=== PATIENT | female | born 1990 | race Caucasian/White ===

== ENCOUNTER 2017-01-23 15:57 | Emergency (ER) | payer BC ==
[2017-01-23 16:10] VITALS: BP 131/99
[2017-01-23] MEDS ORDERED: HYDROmorphone 0.5 MG/0.5 ML Syringe IVPUSH ONE ×2 (17:14→20:06)
[2017-01-23] MEDS ORDERED: Sodium Chloride 0.9% 1,000 ML IV ONE (17:15)
--- NOTE | 2017-01-23 17:15 | EDM.PDOC ---
ED HPI GI/ABDOMINAL - General Chief Complaint: Abdominal Pain Stated Complaint: R SIDE ABDOMINAL PN Time Seen by Provider: 01/23/17 16:32 Source of Information: Reports: Patient - History of Present Illness INITIAL COMMENTS - FREE TEXT/NARRATIVE: Patient here today for RLQ/right flank pain that started this morning. She has had decreased appetite but is tolerating fluids well. She did have some nausea with one episode of vomiting very early this morning. She has a history of ovarian cysts, has had hysterectomy and left ovary removed. US from outside facility today demonstrated normal right ovary and no free fluid in the pelvis. - Related Data Allergies/ADRs: Allergies Allergy/AdvReac Type Severity Reaction Status Date / Time gentamicin [Gentamicin] Allergy Redness Verified 01/23/17 16:11 morphine Allergy Hives Verified 01/23/17 16:11 buspirone HCl [From BuSpar] AdvReac Confusion Verified 01/23/17 16:11 prednisone AdvReac Tachycardia Verified 01/23/17 16:11 sertraline AdvReac Tachycardia Verified 01/23/17 16:11 Home Meds: Home Meds SUMAtriptan [Imitrex Pen Injector Kit] 6 mg SQ ASDIRECTED PRN 02/01/14 [History] ALPRAZolam [Xanax] 0.5 mg PO TID PRN 01/02/16 [History] Ketorolac [Toradol] 60 mg IM Q6H PRN 02/17/16 [History] Amitriptyline [Elavil] 75 mg PO BEDTIME 03/14/16 [History] Atenolol 1 tab PO BID 08/08/16 [History] DULoxetine [Cymbalta] 60 mg PO DAILY 08/08/16 [History] Ondansetron [Zofran] 8 mg PO Q6H PRN 08/08/16 [History] Cyclobenzaprine [Flexeril] 10 mg PO TID PRN #20 tablet 10/29/16 [Rx] Magnesium Amino Acid Chelate [Magnesium] 1 tab PO DAILY 10/29/16 [History] Past Medical History - Past Health History Medical/Surgical History: Denies Medical/Surgical History HEENT History: Reports: Other (see below) Other HEENT History: oral surgery- 2 teeth extracted on left upper and lower Cardiovascular History: Reports: Hypertension, Other (see below) Other Cardiovascular History: takes atenolol for history of tachycardia and migraines Respiratory History: Reports: None Gastrointestinal History: Reports: None, GERD, Other (see below) Other Gastrointestinal History: ulcer Genitourinary History: Reports: None, Renal calculus [facility] History: Reports: Fibroids, Other OB/BYN History: Pt reports "not now." exploratory laproscopy on 05-15-2016 Musculoskeletal History: Reports: Arthritis, Fracture Other Musculoskeletal History: Right radial fracture Neurological History: Reports: Migraines, Seizure Other Neuro History: has been on botox injection about 1 year now Psychiatric History: Reports: Anxiety, Depression, Other (see below) Other Psychiatric History: drug seeking behaviors Endocrine/Metabolic History: Reports: None Hematologic History: Reports: None Other Hematologic History: superficial blood clot 2013 Immunologic History: Reports: None Oncologic (Cancer) History: Reports: None Dermatologic History: Reports: None - Infectious Disease History Infectious Disease History: Reports: Chicken pox - Past Surgical History HEENT Surgical History: Reports: Oral surgery Other HEENT Surgeries/Procedures: [place] teeth GI Surgical History: Reports: Other (see below) Other GI Surgeries/Procedures: Exploratoy laproscopic Female Surgical History: Reports: D&C Other Female Surgeries/Procedures: ovarian cyst Other Neurological Surgeries/Procedures: Had occipital block on Dec 13 Musculoskeletal Surgical History: Reports: Arthroscopic knee, ORIF Other Musculoskeletal Surgeries/Procedures:: knee left scoped at 11 years of age Social & Family History - Family History Family Medical History: Noncontributory - Tobacco Use Smoking Status *Q: Current Some Day Smoker Years of Tobacco use: 10 Packs/Tins Daily: 0.2 Used Tobacco, but Quit: No Month Tobacco Last Used: 4 months ago Second Hand Smoke Exposure: No - Caffeine Use Caffeine Use: Reports: Soda - Alcohol Use Days Per Week of Alcohol Use: 2 Number of Drinks Per Day: 1 Total Drinks Per Week: 2 - Recreational Drug Use Recreational Drug Use: No - Living Situation & Occupation Living situation: Reports: , with family Occupation: unemployed ED ROS GENERAL - Review of Systems Review Of Systems: See Below Constitutional: Denies: fever, chills, weakness, fatigue Respiratory: Reports: No Symptoms Cardiovascular: Reports: No symptoms GI/Abdominal: Reports: Abdominal pain, Diarrhea, Decreased appetite, Nausea. Denies: Anorexia, Black stool, Bloody stool : Reports: flank pain. Denies: discharge, dysuria Skin: Reports: no symptoms ED EXAM, GI/ABD - Physical Exam Exam: See Below Exam Limited By: No limitations General Appearance: alert, WD/WN, no apparent distress Ears: normal external exam, hearing grossly normal, normal TMs Throat/Mouth: Normal inspection, Normal oropharynx Head: atraumatic, normocephalic Respiratory/Chest: no respiratory distress, lungs clear, normal breath sounds Cardiovascular: normal peripheral pulses, regular rate, rhythm, no murmur GI/Abdominal: normal bowel sounds, soft, McBurney's sign, Rovsing's sign. No: Childress's sign Psychiatric: normal affect, normal mood Skin Exam: Warm, Dry, Intact Course - Vital Signs Last Recorded V/S: Last Vital Signs Temp 97.9 F 01/23/17 16:05 Pulse 87 01/23/17 16:05 Resp 19 01/23/17 16:05 BP 131/99 H 01/23/17 16:05 Pulse Ox 99 01/23/17 16:05 - Orders/Labs/Meds Orders: Active Orders 24 hr Category Date Time Status Abdomen Pelvis wo Cont [CT] Stat Exams 01/23/17 18:55 Taken Labs: Laboratory Tests 01/23/17 01/23/17 01/23/17 Range/Units 17:30 18:18 18:18 WBC 11.16 H (3.98-10.04) K/mm3 RBC 4.77 (3.98-5.22) M/mm3 Hgb 13.8 (11.2-15.7) gm/L Hct 40.6 (34.1-44.9) % MCV 85.1 (79.4-94.8) fl MCH 28.9 (25.6-32.2) pg MCHC 34.0 (32.2-35.5) g/dl RDW Std Deviation 41.7 (36.4-46.3) fL Plt Count 362 (182-369) K/mm3 MPV 9.4 (9.4-12.3) fl Neutrophils % (Manual) 65 H (40-60) % Band Neutrophils % 2 (0-10) % Lymphocytes % (Manual) 33 (20-40) % Atypical Lymphs % 0 % Monocytes % (Manual) 0 L (2-10) % Eosinophils % (Manual) 0 L (0.7-5.8) % Basophils % (Manual) 0 L (0.1-1.2) Platelet Estimate Adequate RBC Morph Comment Normal Sodium 140 (136-145) mEq/L Potassium 3.9 (3.5-5.1) mEq/L Chloride 106 (98-107) mEq/L Carbon Dioxide 22 (21-32) mEq/L Anion Gap 15.9 H (5-15) BUN 13 (7-18) mg/dL Creatinine 0.9 (0.55-1.02) mg/dL Est Cr Clr Drug Dosing 89.69 mL/min Estimated GFR (MDRD) > 60 (>60) mL/min BUN/Creatinine Ratio 14.4 (14-18) Glucose 105 (74-106) mg/dL Calcium 9.5 (8.5-10.1) mg/dL Total Bilirubin 0.6 (0.2-1.0) mg/dL AST 12 L (15-37) U/L ALT 17 (14-59) U/L Alkaline Phosphatase 103 (46-116) U/L C-Reactive Protein < 0.2 (<1.0) mg/dL Total Protein 8.6 H (6.4-8.2) g/dl Albumin 4.3 (3.4-5.0) g/dl Globulin 4.3 gm/dL Albumin/Globulin Ratio 1.0 (1-2) Lipase 160 (73-393) U/L Urine Color Yellow (Yellow) Urine Appearance Cloudy H (Clear) Urine pH 6.0 (5.0-8.0) Ur Specific [place] 1.020 (1.005-1.030) Urine Protein Trace H (Negative) Urine Glucose (UA) Negative (Negative) Urine Ketones Negative (Negative) Urine Occult Blood 2+ H (Negative) Urine Nitrite Negative (Negative) Urine Bilirubin Negative (Negative) Urine Urobilinogen 0.2 (0.2-1.0) Ur Leukocyte Esterase Negative (Negative) Urine RBC 0-5 (0-5) /hpf Urine WBC 5-10 H (0-5) /hpf Ur Squamous Epith Cells 50-75 H (0-5) /hpf Urine Bacteria Rare (FEW) /hpf Urine Mucus Not seen (FEW) /hpf Meds: Medications Discontinued Medications Generic Name Dose Route Start Last Admin Trade Name Freq PRN Reason Stop Dose Admin Hydromorphone HCl 0.5 mg 01/23/17 17:14 01/23/17 18:05 Dilaudid IVPUSH 01/23/17 17:15 0.5 mg ONETIME ONE Administration Hydromorphone HCl 0.5 mg 01/23/17 20:06 01/23/17 20:14 Dilaudid IVPUSH 01/23/17 20:07 0.5 mg ONETIME ONE Administration Sodium Chloride 1,000 mls @ 999 mls/hr 01/23/17 17:15 01/23/17 18:04 Normal Saline IV 01/23/17 18:15 999 mls/hr ONETIME ONE Administration - Re-Assessments/Exams Free Text/Narrative Re-Assessment/Exam: RLQ pain/to McBurny's point and 2+ hematuria on UA. WBC 11,160. Patient was given 0.5mg dilaudid with improvement in pain. CT abdomen/pelvis w/o contrast was unremarkable. No ureteral stone or dilatation, appendix is visualized and wnl. NOT acute abdomen. Recommend rest, fluids and BRAT diet. She is to follow-up with PCP if symptoms not resolved by Thursday. 01/23/17 19:47 01/23/17 20:36 Departure - Departure Time of Disposition: 20:35 Disposition: Home, Self-Care 01 Condition: good Clinical Impression: Gastroenteritis Instructions: Viral Gastroenteritis, Adult, [id number] Referrals: Lorelei Burris NP [Primary Care Provider] - Forms: ED Department Discharge Additional Instructions: Rest, push oral fluids and very bland diet. Follow-up with your primary provider Thursday if not improving or you may certainly return to ER if any worsening. - My Orders Last 24 Hours: My Active Orders 01/23/17 18:55 Abdomen Pelvis wo Cont [CT] Stat - Assessment/Plan Last 24 Hours: My Active Orders 01/23/17 18:55 Abdomen Pelvis wo Cont [CT] Stat
--- NOTE | 2017-01-24 08:09 | CT ---
CT abdomen and pelvis Technique: Multiple axial sections were obtained from above the kidneys inferiorly to the pubic symphysis. Intravenous and oral contrast was not utilized. Study has been performed as a ureteral stone protocol. Comparison: Previous CT exam of 01/25/16 performed as a ureteral stone protocol. Findings: Kidneys show no abnormal calcifications. No ureteral dilatation is seen. No ureteral stone is seen. No renal calculi are identified. Noncontrast appearance of the lower liver and spleen appear within normal limits. Visualized portions of the pancreas are within normal limits. Adrenal glands show no nodule. Aorta shows no aneurysmal dilatation. No retroperitoneal adenopathy or mesenteric abnormalities are seen. No pelvic mass or adenopathy is seen. Appendix is seen which appears within normal limits. No free fluid or inflammatory change is seen. Bone window settings were reviewed which appear within normal limits for the patient's age. Impression: 1. No renal calculi, ureteral dilatation or ureteral stone is appreciated. 2. CT study of the abdomen and pelvis shows no abnormality as performed as a ureteral stone protocol. Diagnostic code #1
== END 2017-01-23 20:47 | disposition home or self-care (01) ==
LOC: JD.ED 15:57
DX: K52.9 Noninfective gastroenteritis and colitis, unspecified (principal); K21.9 Gastro-esophageal reflux disease without esophagitis; Z79.899 Other long term (current) drug therapy; Z88.6 Allergy status to analgesic agent; Z88.8 Allergy status to other drugs, medicaments and biological substances; F17.200 Nicotine dependence, unspecified, uncomplicated
CPT/HCPCS: 36415; 74176; 80053; 81001; 83690; 85025; 86140; 96361; 96374; 96376; 99284; J1170; J7040; 99285-25

== ENCOUNTER 2017-02-16 18:15 | Emergency (ER) | payer BC ==
[2017-02-16 18:32] VITALS: BP 144/97
[2017-02-16] MEDS ORDERED: diphenhydrAMINE 50 MG/ML SDV IVPUSH ONE (19:24)
[2017-02-16] MEDS ORDERED: Sodium Chloride 0.9% 10 ML Syringe FLUSH PRN (19:24)
[2017-02-16] MEDS ORDERED: Metoclopramide 10 MG/2 ML SDV IVPUSH ONE (19:24)
[2017-02-16] MEDS ORDERED: Sodium Chloride 0.9% 1,000 ML IV ONE (19:26)
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
[2017-02-16] MEDS ORDERED: Dicyclomine 10 MG Cap PO ONE (19:44)
[2017-02-16] MEDS ORDERED: Metoclopramide 10 MG/2 ML SDV IM ONE (20:10)
[2017-02-16] MEDS ORDERED: diphenhydrAMINE 50 MG/ML SDV IM ONE (20:10)
[2017-02-16] MEDS ORDERED: Potassium Bicarbonate/Cit Ac 10 MEQ Effervescent Tab PO ONE (20:19)
[2017-02-16] MEDS ORDERED: Dicyclomine 10 MG Cap PO SCH (22:00)
--- NOTE | 2017-02-17 09:13 | CR ---
Abdomen: Supine and upright views of the abdomen were obtained. Comparison: No previous abdominal x-ray, previous CT abdomen and pelvis exam of 01/23/17 performed as a ureteral stone protocol. No free air is identified. No abnormal calcifications are identified. Scattered gas within small bowel and colon is seen which appears within normal limits at this time. Bony structures appear within normal limits for the patient's age. Impression: 1. Nonspecific two-view abdominal x-ray. Diagnostic code #1
== END 2017-02-16 21:20 | disposition home or self-care (01) ==
LOC: JD.ED 18:15
DX: K59.00 Constipation, unspecified (principal); E87.6 Hypokalemia; F41.8 Other specified anxiety disorders; Z98.890 Other specified postprocedural states; Z79.899 Other long term (current) drug therapy; Z88.1 Allergy status to other antibiotic agents; Z88.8 Allergy status to other drugs, medicaments and biological substances; Z88.5 Allergy status to narcotic agent
CPT/HCPCS: 36415; 74020; 80053; 81001; 83690; 85025; 86140; 96372; 99284; A9270; J1200; J2765

== ENCOUNTER 2017-09-29 08:49 | Emergency (ER) | payer BC ==
--- NOTE | 2017-09-29 08:55 | EDM.PDOC ---
ED HPI GENERAL MEDICAL PROBLEM - General Chief Complaint: Gastrointestinal Problem Stated Complaint: DEHYDRATION Time Seen by Provider: 09/29/17 08:54 Source of Information: Reports: Patient History Limitations: Reports: No Limitations - History of Present Illness INITIAL COMMENTS - FREE TEXT/NARRATIVE: 27-year-old female attends the ED in a couple of her . She was sent over from [facility] where she was seen initially. She reports that she developed stomach flu on August. This started out with both nausea vomiting and diarrhea. The diarrhea was large-volume yellow water loss for about a day and a half and seemed to improve after taking Imodium twice. However she has continued to have intermittent nausea and vomiting. She takes water but most of it is coming back up. She feels extremely lightheaded and dizzy when she tries to stand. She has not fallen or collapsed. When seen at the clinic heart rate was 132/m with a systolic blood pressure of 82. She has a severe headache she believes from vomiting so much. She denies any hematemesis or blood in the stool. Has diffuse upper abdominal pain. No cough or sputum production not aware of any fever or chills. No genitourinary complaints. Onset: Sudden Onset Date: 09/20/17 Duration: Day(s):, Waxing/Waning Location: Reports: Abdomen (Nausea vomiting intractable with initial diarrhea that is now improved.), Other (Generalized pounding throbbing headache.) Quality: Reports: Ache Severity: Severe Improves with: Reports: None Worsens with: Reports: Eating Context: Reports: Sick Contact (Stomach flu seem to go through the house after Thanksgiving when relatives visited.). Denies: Activity, Exercise, Lifting, Trauma Associated Symptoms: Reports: Fever/Chills (Chills but no fever), Headaches, Loss of Appetite, Malaise. Denies: Confusion, Chest Pain, Cough, cough w sputum , Diaphoresis, Seizure (Constant throbbing pounding headache), Shortness of Breath, Syncope Treatments LIFE UNDERWRITER: Reports: Other (see below) (Zofran sublingual when necessary) Headache Pain Score (Numeric/FACES): 9 Generalized Pain Score (Numeric/FACES): 8 - Related Data Allergies Allergy/AdvReac Type Severity Reaction Status Date / Time gentamicin [Gentamicin] Allergy Redness Verified 09/29/17 09:03 morphine Allergy Hives Verified 09/29/17 09:03 buspirone HCl [From BuSpar] AdvReac Confusion Verified 09/29/17 09:03 prednisone AdvReac Tachycardia Verified 09/29/17 09:03 sertraline AdvReac Tachycardia Verified 09/29/17 09:03 Home Meds: Home Meds SUMAtriptan [Imitrex Pen Injector Kit] 6 mg SQ ASDIRECTED PRN 02/01/14 [History] ALPRAZolam [Xanax] 0.5 mg PO TID PRN 01/02/16 [History] Ketorolac [Toradol] 60 mg IM Q6H PRN 02/17/16 [History] Amitriptyline [Elavil] 75 mg PO BEDTIME 03/14/16 [History] Atenolol 1 tab PO BID 08/08/16 [History] DULoxetine [Cymbalta] 60 mg PO DAILY 08/08/16 [History] Ondansetron [Zofran] 8 mg PO Q6H PRN 08/08/16 [History] Cyclobenzaprine [Flexeril] 10 mg PO TID PRN #20 tablet 10/29/16 [Rx] Magnesium Amino Acid Chelate [Magnesium] 1 tab PO DAILY 10/29/16 [History] Metoclopramide HCl [Reglan] 10 mg PO Q6H #6 tablet 09/29/17 [Rx] Past Medical History - Past Health History Medical/Surgical History: Denies Medical/Surgical History HEENT History: Reports: Other (See Below) Other HEENT History: oral surgery- 2 teeth extracted on left upper and lower Cardiovascular History: Reports: Hypertension, Other (See Below) Other Cardiovascular History: takes atenolol for history of tachycardia and migraines Respiratory History: Reports: None Gastrointestinal History: Reports: None, GERD, Other (See Below) Other Gastrointestinal History: ulcer Genitourinary History: Reports: None, Renal Calculus BREAD JOCKEY History: Reports: Fibroids, Other OB/BYN History: Pt reports "not now." exploratory laproscopy on 05-15-2016 Musculoskeletal History: Reports: Arthritis, Fracture Other Musculoskeletal History: Right radial fracture Neurological History: Reports: Migraines, Seizure Other Neuro History: has been on botox injection about 1 year now Psychiatric History: Reports: Anxiety, Depression, Other (See Below) Other Psychiatric History: drug seeking behaviors Endocrine/Metabolic History: Reports: None Hematologic History: Reports: None Other Hematologic History: superficial blood clot 2013 Immunologic History: Reports: None Oncologic (Cancer) History: Reports: None Dermatologic History: Reports: None - Infectious Disease History Infectious Disease History: Reports: Chicken Pox - Past Surgical History HEENT Surgical History: Reports: Oral Surgery GI Surgical History: Reports: Other (See Below) Musculoskeletal Surgical History: Reports: Arthroscopic Knee, ORIF Social & Family History - Family History Family Medical History: Noncontributory - Tobacco Use Smoking Status *Q: Never Smoker Years of Tobacco use: 10 Packs/Tins Daily: 0.2 Used Tobacco, but Quit: No Month Tobacco Last Used: 4 months ago Second Hand Smoke Exposure: No - Caffeine Use Caffeine Use: Reports: Soda - Alcohol Use Days Per Week of Alcohol Use: 2 Number of Drinks Per Day: 1 Total Drinks Per Week: 2 - Recreational Drug Use Recreational Drug Use: No - Living Situation & Occupation Living situation: Reports: , with Family Occupation: Unemployed ED ROS GENERAL - Review of Systems Review Of Systems: See Below Constitutional: Reports: Chills, Malaise, Weakness, Fatigue, Decreased Appetite , Weight Loss, Other (Dizzy and lightheaded). Denies: Fever HEENT: Denies: Glasses, Hearing Loss, Rhinitis, Sinus Problem, Vertigo Respiratory: Reports: No Symptoms Cardiovascular: Reports: No Symptoms Endocrine: Reports: Fatigue GI/Abdominal: Reports: Abdominal Pain (From vomiting so much in the upper abdomen.), Diarrhea, Decreased Appetite, Nausea (A with initial onset of illness her to couple of days but now better.), Vomiting (Intractable nausea and vomiting times a week.) : Reports: Other (Mild dysuria as the urine is very concentrated) Musculoskeletal: Reports: Neck Pain (Chronically) Skin: Reports: No Symptoms Neurological: Reports: Dizziness, Headache, Difficulty Walking, Weakness. Denies: Numbness (Constant throbbing generalized headache.), Paresthesia, Pre- Existing Deficit, Seizure, Syncope, Tingling, Tremors, Trouble Speaking (Due to weakness), Change in Speech, Gait Disturbance Psychiatric: Reports: No Symptoms Hematologic/Lymphatic: Reports: No Symptoms Immunologic: Reports: No Symptoms ED EXAM, GI/ABD - Physical Exam Exam: See Below Exam Limited By: No Limitations General Appearance: Alert, WD/WN, No Apparent Distress, Other (Vital signs reveal a blood pressure of 86/49 and normally she is 120 to 1:30 systolically. Respiratory is only 16 however and should be higher if she is ketotic. Resting heart rate is 132/m.) Eyes: Bilateral: Pale Conjunctiva (No jaundice.) Throat/Mouth: Other Head: Atraumatic, Normocephalic (Tongue is slightly dry and coated.) Neck: Normal Inspection, Supple, Non-Tender, Full Range of Motion. No: Lymphadenopathy (L), Lymphadenopathy (R) Respiratory/Chest: No Respiratory Distress, Lungs Clear, Normal Breath Sounds, No Accessory Muscle Use, Chest Non-Tender Cardiovascular: Normal Peripheral Pulses, No Edema, No Gallop, No Murmur, No Rub , Tachycardia (Resting tachycardia of 1 32/m.) GI/Abdominal Exam: Soft, No Distention, No Abnormal Bruit, Tender (In the epigastrium what appears to be musculoskeletal in origin.). No: No Organomegaly , No Mass, Guarding, Rigid, Rebound Extremities: Normal Inspection, Normal Range of Motion, Non-Tender, No Pedal Edema Neurological: Alert, Oriented, CN II-XII Intact, Normal Cognition Psychiatric: Normal Affect, Normal Mood Skin Exam: Warm, Dry, Intact, Normal Color, No Rash Course - Vital Signs Last Recorded V/S: Last Vital Signs Temp 36.9 C 09/29/17 08:55 Pulse 132 H 09/29/17 08:55 Resp 16 09/29/17 08:55 BP 86/49 L 09/29/17 08:55 Pulse Ox 95 09/29/17 08:55 Orthostatic Blood Pressure [ 85/49 Standing] Orthostatic Blood Pressure [ 90/47 Sitting] Orthostatic Blood Pressure [ 86/49 Supine] - Orders/Labs/Meds Orders: Active Orders 24 hr Category Date Time Status Orthostatic Vital Signs [RC] ASDIRECTED Care 09/29/17 08:54 Active COMPREHENSIVE METABOLIC PN,CMP [CHEM] Stat Lab 09/29/17 10:10 Results CRP [C-REACTIVE PROTEIN] [CHEM] Stat Lab 09/29/17 10:10 Results DRUG SCREEN, URINE [URCHEM] Stat Lab 09/29/17 09:30 Uncollected LIPASE [CHEM] Stat Lab 09/29/17 10:10 Results URINALYSIS W/MICROSCOPIC [UA W/MICROSCOPIC] [URIN] Stat Lab 09/29/17 09:24 Uncollected Dextrose 5%-0.9% NaCl [Dextrose 5%-Normal Saline] 1,000 Med 09/29/17 09:00 Active ml IV ASDIRECTED Medication Orders Dextrose/Sodium Chloride (Dextrose 5%-Normal Saline) 1,000 mls @ 999 mls/hr IV ASDIRECTED THANIA Last Admin: 09/29/17 10:23 Dose: 999 mls/hr Labs: Laboratory Tests 09/29/17 09/29/17 09/29/17 Range/Units 10:10 10:10 10:10 WBC 17.21 H (3.98-10.04) K/mm3 RBC 4.58 (3.98-5.22) M/mm3 Hgb 13.4 (11.2-15.7) gm/L Hct 39.6 (34.1-44.9) % MCV 86.5 (79.4-94.8) fl MCH 29.3 (25.6-32.2) pg MCHC 33.8 (32.2-35.5) g/dl RDW Std Deviation 41.3 (36.4-46.3) fL Plt Count 165 L (182-369) K/mm3 MPV 9.3 L (9.4-12.3) fl Neutrophils % (Manual) 81 H (40-60) % Band Neutrophils % 15 H (0-10) % Lymphocytes % (Manual) 4 L (20-40) % Atypical Lymphs % 0 % Monocytes % (Manual) 0 L (2-10) % Eosinophils % (Manual) 0 L (0.7-5.8) % Basophils % (Manual) 0 L (0.1-1.2) Platelet Estimate Adequate Plt Morphology Comment Normal RBC Morph Comment Normal Sodium 138 (136-145) mEq/L Potassium 4.9 (3.5-5.1) mEq/L Chloride 101 (98-107) mEq/L Carbon Dioxide 22 (21-32) mEq/L Anion Gap 19.9 H (5-15) BUN 35 H (7-18) mg/dL Creatinine 2.6 H (0.55-1.02) mg/dL Est Cr Clr Drug Dosing 32.21 mL/min Estimated GFR (MDRD) 22 (>60) mL/min BUN/Creatinine Ratio 13.5 L (14-18) Glucose 84 (74-106) mg/dL Calcium 8.5 (8.5-10.1) mg/dL Total Bilirubin 4.7 H (0.2-1.0) mg/dL AST 142 H (15-37) U/L ALT 88 H (14-59) U/L Alkaline Phosphatase 116 (46-116) U/L Total Protein 7.7 (6.4-8.2) g/dl Albumin 3.5 (3.4-5.0) g/dl Globulin 4.2 gm/dL Albumin/Globulin Ratio 0.8 L (1-2) Lipase 80 (73-393) U/L Ketones 0.34 (0.0-0.3) mM Meds: Medications Generic Name Dose Route Start Last Admin Trade Name Freq PRN Reason Stop Dose Admin Dextrose/Sodium Chloride 1,000 mls @ 999 mls/hr 09/29/17 09:00 09/29/17 10:23 Dextrose 5%-Normal Saline IV 999 mls/hr ASDIRECTED THANIA Administration Discontinued Medications Generic Name Dose Route Start Last Admin Trade Name Freq PRN Reason Stop Dose Admin Diphenhydramine HCl 25 mg 09/29/17 09:21 09/29/17 10:24 Benadryl IVPUSH 09/29/17 09:22 25 mg ONETIME ONE Administration Hydromorphone HCl 1 mg 09/29/17 09:21 09/29/17 10:26 Dilaudid IVPUSH 09/29/17 09:22 1 mg ONETIME ONE Administration Metoclopramide HCl 10 mg 09/29/17 09:21 09/29/17 10:24 Reglan IVPUSH 09/29/17 09:22 10 mg ONETIME ONE Administration - Radiology Interpretation Free Text/Narrative:: 27-year-old female presents the ED after being referred from [facility] with a noted resting tachycardia of 1 32/m and a low blood pressure of 86 systolic. She reports that she's had intractable nausea and vomiting for about 8 days. Small sips of water may be stay down. Prior to making any urine. Patient actually looks good. She reports that the initial onset of illness was that also loose watery diarrhea stools for 2 days. At present she has a constant throbbing headache which is made worse by the vomiting. She is prone to migraines. Patient has a history of narcotic dependency and abuse. Some of her symptoms at this time could be withdrawal. Plan we'll try and establish an IV and obtain routine labs. Note she is not tachypnea Which would suggest she is not truly acidotic. Given Reglan 10 mg IV with Benadryl 25 mg IV for headache relief. Also to prevent dystonic reaction as she took a Zofran within the hour prior to coming to the clinic. Dilaudid 1 mg IV for headache relief routine labs including a serum lipase and serum ketones. - Re-Assessments/Exams Free Text/Narrative Re-Assessment/Exam: 09/29/17 10:08 delay in treatment because of inability to get an IV established. GOVERNMENT OPERATIONS CONSULTANT was called to establish an IV at this time. 09/29/17: 1055: Labs reveal an elevated white count at 17.21 with a significant left shift of 81% neutrophils and 15% band cells. Hemoglobin is 13.4 hematocrit is 39.6. Platelet count 165,000. Sodium 138 potassium 4.9 chloride 101 bicarbonate is 22. Anion gap is elevated at 19.9 with a BUN of 35. Creatinine is 2.6. EGFR is only 22. BUN/creatinine ratio is 13.5. Glucose was 84. Calcium 8.5 total bilirubin is elevated at 4.7 AST is 142 ALT is 88 I suspect from volume depletion. C-reactive protein is not yet available. Lipase is 80. Ketones 0.34. I.e. elevated 09/29/17 10:59 Patient got a call from her daughter from the school and needs to be picked up as she now is having nausea and vomiting.. She therefore wishes to discontinue her IV and she has thus far only received 500 mils. Her and a gap is 19.9 with a white count of 17.2 potassium is okay at 4.9 but her creatinine is 2.6. She is volume depleted. She has decided to leave the department. I will therefore place her on Reglan 10 mg by mouth every 6 hours for the next day and then she can use Zofran sublingually. She is to take in at least 40 ounces of Gatorade or Powerade today and tomorrow to provide replenishment. Of note she is leaving the ED again by better judgment. Departure - Departure Time of Disposition: 11:00 Disposition: Home, Self-Care 01 Condition: Fair Clinical Impression: Metabolic acidosis, Renal insufficiency, Volume depletion, gastrointestinal loss Intractable nausea and vomiting Qualifiers: Vomiting type: unspecified Qualified Code(s): R11.2 - Nausea with vomiting, unspecified - Discharge Information Prescriptions: Metoclopramide HCl [Reglan] 10 mg PO Q6H #6 tablet Instructions: Nausea and Vomiting, Adult Referrals: Lorelei Burris NP [Primary Care Provider] - Forms: ED Department Discharge Additional Instructions: Evaluation the emergency room today in regards to intractable nausea and vomiting with volume depletion. Lab work does show an elevated white count at 17.72 which represents a stress response. You are suffering from what we call a metabolic acidosis with an anion gap of 19.9. Normal anion gap is 15. This is a measuring stick for dehydration and revealing that you're breaking down your fatty acids for energy because of inability to eat. Kidney function is showing signs of dehydration as well. You opted to leave the department before adequate treatment could be given as you would normally require about 2 L of IV fluid to provide significant rehydration. Therefore I would suggest Reglan tablet every 6 hours for 6 consecutive doses. Next dose would be taken at 3:00 today. This should keep you from further vomiting and allow you to take in clear fluids. I would especially suggest Gatorade or Powerade taking at least 40-60 ounces today and similarly tomorrow to rehydrate herself. Of course the vomiting continued issue will have to return to the ED. - My Orders Last 24 Hours: My Active Orders 09/29/17 08:54 Orthostatic Vital Signs [RC] ASDIRECTED 09/29/17 09:00 Dextrose 5%-0.9% NaCl [Dextrose 5%-Normal Saline] 1,000 ml IV ASDIRECTED 09/29/17 09:24 URINALYSIS W/MICROSCOPIC [UA W/MICROSCOPIC] [URIN] Stat 09/29/17 09:30 DRUG SCREEN, URINE [URCHEM] Stat 09/29/17 10:10 COMPREHENSIVE METABOLIC PN,CMP [CHEM] Stat CRP [C-REACTIVE PROTEIN] [CHEM] Stat LIPASE [CHEM] Stat - Assessment/Plan Last 24 Hours: My Active Orders 09/29/17 08:54 Orthostatic Vital Signs [RC] ASDIRECTED 09/29/17 09:00 Dextrose 5%-0.9% NaCl [Dextrose 5%-Normal Saline] 1,000 ml IV ASDIRECTED 09/29/17 09:24 URINALYSIS W/MICROSCOPIC [UA W/MICROSCOPIC] [URIN] Stat 09/29/17 09:30 DRUG SCREEN, URINE [URCHEM] Stat 09/29/17 10:10 COMPREHENSIVE METABOLIC PN,CMP [CHEM] Stat CRP [C-REACTIVE PROTEIN] [CHEM] Stat LIPASE [CHEM] Stat
[2017-09-29] MEDS ORDERED: Dextrose 5%-0.9% NaCl 1,000 ML IV SCH (09:00)
[2017-09-29 09:03] VITALS: BP 86/49
[2017-09-29] MEDS ORDERED: diphenhydrAMINE 50 MG/ML SDV IVPUSH ONE (09:21)
[2017-09-29] MEDS ORDERED: Metoclopramide 10 MG/2 ML SDV IVPUSH ONE (09:21)
[2017-09-29] MEDS ORDERED: HYDROmorphone 1 MG/ML Syringe IVPUSH ONE (09:21)
--- NOTE | 2017-09-29 10:28 | PCM.SN ---
- Free Text/Narrative Note: 09-29-17 Start- 1000 End- 1020 Called to ED for a patient with difficult IV access. Multiple attempts per nursing staff without success. Patients left proximal antecubital prepped with chloraprep and lfet to dry. Skin localized with 1% buffered lidocaine. A 20 gauge 1.88" angiocath was placed in the left brachial vein under ultrasound guidance x1 attempt. 10CC of blood drawn from IV catheter after 10cc of waste blood was taken from the vein. Flushed well. Secured with sterile tegaderm and tape. Patient tolerated well. Suhas Huber CRNA
== END 2017-09-29 11:17 | disposition home or self-care (01) ==
LOC: JD.ED 08:49
DX: E86.9 Volume depletion, unspecified (principal); E87.2 Acidosis; N28.9 Disorder of kidney and ureter, unspecified; K92.2 Gastrointestinal hemorrhage, unspecified; I10 Essential (primary) hypertension; Z88.1 Allergy status to other antibiotic agents; Z88.5 Allergy status to narcotic agent; Z88.8 Allergy status to other drugs, medicaments and biological substances; Z79.899 Other long term (current) drug therapy
CPT/HCPCS: 36415; 80053; 82009; 83690; 85025; 86140; 96361; 96374; 96375; 99284; J1170; J1200; J2765; J7042

== ENCOUNTER 2018-04-07 19:27 | Emergency (ER) | payer BC ==
[2018-04-07 19:56] VITALS: BP 145/90
[2018-04-07] MEDS ORDERED: Haloperidol Lactate 5 MG/ML SDV IM ONE (20:10)
[2018-04-07] MEDS ORDERED: Benztropine 1 MG Tab PO STA (20:10)
[2018-04-07] MEDS ORDERED: Ondansetron 4 MG/2 ML SDV IVPUSH ONE (20:10)
[2018-04-07] MEDS ORDERED: Sodium Chloride 0.9% 1,000 ML IV ONE (20:10)
--- NOTE | 2018-04-07 20:49 | EDM.PDOC ---
ED HPI GENERAL MEDICAL PROBLEM - General Chief Complaint: Headache Stated Complaint: MYGRAIN Time Seen by Provider: 04/07/18 19:55 Source of Information: Reports: Patient History Limitations: Reports: No Limitations - History of Present Illness INITIAL COMMENTS - FREE TEXT/NARRATIVE: The patient states that she has had a migraine for the past 4 days. She describes a bifrontal headache. It is constant. She has had nausea, and states that she vomited once. She has both photophobia and phonophobia, but no visual changes, and no neurologic symptoms, such as tingling, numbness, or weakness. She states that this current headache is essentially the same as prior migraines , although she has not had a migraine for over a year. She states that she took 2 doses of sumatriptan this past 04/04/2018, then 60 mg of IM Toradol on 04/05/2018. She states that she has also been taking aspirin and Excedrin, all without relief. She states that the last imaging study of her head was in 2015. The patient has a documented history of opioid dependence. Headache Pain Score (Numeric/FACES): 8 - Related Data Allergies Allergy/AdvReac Type Severity Reaction Status Date / Time gentamicin [Gentamicin] Allergy Redness Verified 04/07/18 19:56 morphine Allergy Hives Verified 04/07/18 19:56 buspirone HCl [From BuSpar] AdvReac Confusion Verified 04/07/18 19:56 prednisone AdvReac Tachycardia Verified 04/07/18 19:56 sertraline AdvReac Tachycardia Verified 04/07/18 19:56 Home Meds: Home Meds SUMAtriptan [Imitrex Pen Injector Kit] 6 mg SQ ASDIRECTED PRN 02/01/14 [History] ALPRAZolam [Xanax] 0.5 mg PO TID PRN 01/02/16 [History] Ketorolac [Toradol] 60 mg IM Q6H PRN 02/17/16 [History] Amitriptyline [Elavil] 75 mg PO BEDTIME 03/14/16 [History] Atenolol 1 tab PO BID 08/08/16 [History] DULoxetine [Cymbalta] 60 mg PO DAILY 08/08/16 [History] Ondansetron [Zofran] 8 mg PO Q6H PRN 08/08/16 [History] Cyclobenzaprine [Flexeril] 10 mg PO TID PRN #20 tablet 10/29/16 [Rx] Magnesium Amino Acid Chelate [Magnesium] 1 tab PO DAILY 10/29/16 [History] Metoclopramide HCl [Reglan] 10 mg PO Q6H #6 tablet 09/29/17 [Rx] Past Medical History 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: 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, Musculoskeletal History: Reports: Arthritis, Fracture (right radius) Neurological History: Reports: Migraines, Seizure Psychiatric History: Reports: Addiction (Opioids), Anxiety, Depression - Infectious Disease History Infectious Disease History: Reports: Chicken Pox - Past Surgical History HEENT Surgical History: Reports: Oral Surgery ([place] teeth extraction) Female Surgical History: Reports: D&C (x 1) Musculoskeletal Surgical History: Reports: Arthroscopic Knee (left), ORIF ( right hand) Social & Family History - Family History Family Medical History: Noncontributory - Tobacco Use Smoking Status *Q: Current Some Day Smoker Years of Tobacco use: 10 Packs/Tins Daily: 0.1 - Caffeine Use Caffeine Use: Reports: Coffee, Soda - Recreational Drug Use Recreational Drug Use: No - Living Situation & Occupation Living situation: Reports: , with Family Occupation: Unemployed ED ROS GENERAL - Review of Systems Review Of Systems: ROS reveals no pertinent complaints other than HPI. - Physical Exam Exam: See Below Exam Limited By: No Limitations General Appearance: Alert, WD/WN, No Apparent Distress Eye Exam: Bilateral Eye: Other (Mydriasis - both pupils dilated to 9 mm, with no light reflex) Ears: Normal External Exam, Hearing Grossly Normal Nose: Normal Inspection, No Blood Throat/Mouth: Normal Inspection, Normal Lips, Normal Voice, No Airway Compromise Head Exam: Atraumatic, Normocephalic Neck: Normal Inspection, Full Range of Motion Respiratory/Chest: No Respiratory Distress, Lungs Clear, Normal Breath Sounds, No Accessory Muscle Use Cardiovascular: Normal Peripheral Pulses, Regular Rate, Rhythm, No Edema, No Gallop, No JVD, No Murmur, No Rub GI/Abdominal: Normal Bowel Sounds, Soft, Non-Tender, No Organomegaly, No Distention, No Abnormal Bruit, No Mass (Female) Exam: Deferred Rectal (Female) Exam: Deferred Neuro Exam (Abbreviated): Alert, Oriented, CN II-XII Intact, Normal Cognition, No Motor/Sensory Deficits Back Exam: Normal Inspection, Full Range of Motion, NT Extremities: Normal Inspection, Normal Range of Motion, No Pedal Edema, Normal Capillary Refill Psychiatric: Normal Affect Skin Exam: Warm, Dry, Intact, Normal Color, No Rash Course - Vital Signs Last Recorded V/S: Last Vital Signs Temp 36.6 C 04/07/18 19:54 Pulse 64 04/07/18 19:54 Resp 18 04/07/18 19:54 BP 145/90 H 04/07/18 19:54 Pulse Ox 98 04/07/18 19:54 - Orders/Labs/Meds Meds: Medications Discontinued Medications Generic Name Dose Route Start Last Admin Trade Name Rik PRN Reason Stop Dose Admin Benztropine Mesylate 1 mg 04/07/18 20:10 04/07/18 20:45 Cogentin PO 04/07/18 20:11 1 mg ONETIME STA Administration Haloperidol Lactate 5 mg 04/07/18 20:10 04/07/18 20:36 Haldol IM 04/07/18 20:11 5 mg ONETIME ONE Administration Sodium Chloride 1,000 mls @ 999 mls/hr 04/07/18 20:10 04/07/18 20:30 Normal Saline IV 04/07/18 21:10 Not Given ONETIME ONE Ondansetron HCl 4 mg 04/07/18 20:10 04/07/18 20:30 Zofran IVPUSH 04/07/18 20:11 Not Given ONETIME ONE - Re-Assessments/Exams Free Text/Narrative Re-Assessment/Exam: 04/07/18 20:33 Notified by Seble REEVES that the patient is refusing to have an IV placed, therefore we cannot give her the IV fluid or IV Zofran that was ordered, however , she can still get the IM Haldol and oral Cogentin. 04/07/18 21:03 2 nurses reported to me that the patient is requesting Benadryl. On her physical examination, the patient was found to have severe mydriasis. While there are a number of medications or drugs that can cause this, one of them is Benadryl, as the anticholinergic effect blocks the muscarinic acetylcholine receptor, allowing for pupillary constriction and accommodation. While it may sound odd, abuse of Benadryl is fairly common, as excessive doses, like other anticholinergic medications, causes a release of dopamine, producing euphoria. I therefore refused the patient's request for Benadryl. 04/07/18 22:06 CT of the head without contrast is read by [facility] as "Normal head/ brain CT." 04/07/18 22:07 The patient reports that her headache is down to a "5". I will discharge her home. Departure - Departure Time of Disposition: 22:07 Disposition: Home, Self-Care 01 Condition: Good Clinical Impression: Migraine headache without aura Qualifiers: Status migrainosus presence: without status migrainosus Intractability: intractable Qualified Code(s): G43.019 - Migraine without aura, intractable, without status migrainosus - Discharge Information Instructions: Migraine Headache, [id number] Referrals: Lorelei Burris RN WOUND [Primary Care Provider] - Forms: ED Department Discharge Additional Instructions: You were seen in the emergency room for a migraine headache. Workup in the ER included a CT scan of her head, which returned as normal. Your headaches significantly improved following IM Haldol. This confirms that your headache was migrainous in etiology. Get plenty of rest tonight in a dark, quiet place. Stay well hydrated. Follow-up with your PCP, Lorelei Burris, at the next available appointment. If any other problems, please do not hesitate to return to the ER.
--- NOTE | 2018-04-08 07:51 | CT ---
Head CT Technique: Multiple axial sections through the brain were obtained. Intravenous contrast was not utilized. Comparison: Previous MRI brain dated 01/23/16. Findings: Ventricles along with basal cisterns and sulci over the convexities are within normal limits for the patient's age. No abnormal parenchymal densities are seen. No evidence of intracranial hemorrhage. No midline shift or mass effect is seen. Bone window settings were reviewed which show the visualized sinuses to appear clear. No acute calvarial abnormality is seen. Impression: 1. Nothing acute is seen on noncontrast head CT study. Diagnostic code #1 Agree with preliminary report issued by [facility] ([facility] preliminary report dictated on 04/07/18, 10:20 PM Central Time)
== END 2018-04-07 22:20 | disposition home or self-care (01) ==
LOC: JD.ED 19:27
DX: G43.019 Migraine without aura, intractable, without status migrainosus (principal); F17.210 Nicotine dependence, cigarettes, uncomplicated; M19.90 Unspecified osteoarthritis, unspecified site; Z79.899 Other long term (current) drug therapy; Z88.5 Allergy status to narcotic agent; Z88.8 Allergy status to other drugs, medicaments and biological substances
CPT/HCPCS: 70450; 96372; 99284; A9270; J1630

== ENCOUNTER 2019-10-01 13:45 | Emergency (ER) | payer BC ==
[2019-10-01 14:05] VITALS: BP 136/93; PULSE 102
--- NOTE | 2019-10-01 15:10 | EDM.PDOC ---
<Paulina Calderón - Last Filed: 10/01/19 15:11> ED HPI GENERAL MEDICAL PROBLEM - General Chief Complaint: Lower Extremity Injury/Pain Stated Complaint: FALL/BACK AND LEG INJURY Time Seen by Provider: 10/01/19 14:11 Source of Information: Reports: Patient History Limitations: Reports: No Limitations - History of Present Illness INITIAL COMMENTS - FREE TEXT/NARRATIVE: 29 year old female presents to the ED with complaints of pain to her left buttock from a fall last evening. She reports that last evening around 1800 she slipped on the ice and both of her legs went out from under her and she landed on her left buttock. Her pain is in her left ischium and radiates up to her lower back and across her lower back. There is not bruising or abrasions noted to this area. Denies radiculopathy down the left leg. CMS is positive. She said that about 1.5 hrs ago she took 800mg of motrin, 1000mg of tylenol and a flexeril. She has not had much relief from the pain from this. Bilateral Posterior Sacral Pain Score (Numeric/FACES): 10 - Related Data Allergies Allergy/AdvReac Type Severity Reaction Status Date / Time gentamicin [Gentamicin] Allergy Redness Verified 10/01/19 14:21 morphine Allergy Hives Verified 10/01/19 14:21 buspirone HCl [From BuSpar] AdvReac Confusion Verified 10/01/19 14:21 prednisone AdvReac Tachycardia Verified 10/01/19 14:21 sertraline AdvReac Tachycardia Verified 10/01/19 14:21 Home Meds: Home Meds SUMAtriptan [Imitrex Pen Injector Kit] 6 mg SQ ASDIRECTED PRN 02/01/14 [History] ALPRAZolam [Xanax] 0.5 mg PO TID PRN 01/02/16 [History] Ketorolac [Toradol] 60 mg IM Q6H PRN 02/17/16 [History] Amitriptyline [Elavil] 150 mg PO BEDTIME 03/14/16 [History] Atenolol 50 mg PO BID 08/08/16 [History] DULoxetine [Cymbalta] 60 mg PO DAILY 08/08/16 [History] Ondansetron [Zofran] 8 mg PO BID PRN 08/08/16 [History] Cyclobenzaprine [Flexeril] 10 mg PO TID PRN #20 tablet 10/29/16 [Rx] Magnesium Amino Acid Chelate [Magnesium] 1 tab PO DAILY 10/29/16 [History] Past Medical History - Past Health History Medical/Surgical History: Denies Medical/Surgical History HEENT History: Reports: Other (See Below) Other HEENT History: oral surgery- 2 teeth extracted on left upper and lower Cardiovascular History: Reports: Hypertension, Other (See Below) Other Cardiovascular History: takes atenolol for history of tachycardia and migraines Respiratory History: Reports: None Gastrointestinal History: Reports: None, GERD, Other (See Below) Other Gastrointestinal History: ulcer Genitourinary History: Reports: None, Renal Calculus 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 History: Reports: Fibroids, Other 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 COORDINATOR History: Pt reports "not now." exploratory laproscopy on 05-15-2016 Musculoskeletal History: Reports: Arthritis, Fracture Other Musculoskeletal History: Right radial fracture Neurological History: Reports: Migraines, Seizure Other Neuro History: has been on botox injection about 1 year now Psychiatric History: Reports: Addiction, Anxiety, Depression Other Psychiatric History: drug seeking behaviors Endocrine/Metabolic History: Reports: None Hematologic History: Reports: None Other Hematologic History: superficial blood clot 2013 Immunologic History: Reports: None Oncologic (Cancer) History: Reports: None Dermatologic History: Reports: None - Infectious Disease History Infectious Disease History: Reports: Chicken Pox - Past Surgical History HEENT Surgical History: Reports: Oral Surgery GI Surgical History: Reports: Other (See Below) Female Surgical History: Reports: D&C Musculoskeletal Surgical History: Reports: Arthroscopic Knee, ORIF Dermatological Surgical History: Reports: Plastic Surgical Reconstruction/Repair Social & Family History - Family History Family Medical History: Noncontributory - Tobacco Use Smoking Status *Q: Current Every Day Smoker Years of Tobacco use: 10 Packs/Tins Daily: 1 Used Tobacco, but Quit: No Second Hand Smoke Exposure: No - Caffeine Use Caffeine Use: Reports: Soda - Recreational Drug Use Recreational Drug Use: No - Living Situation & Occupation Living situation: Reports: , with Family Occupation: Unemployed Review of Systems - Review of Systems Review Of Systems: See Below Constitutional: Reports: No Symptoms Eyes: Reports: No Symptoms Ears: Reports: No Symptoms Nose: Reports: No Symptoms Mouth/Throat: Reports: No Symptoms Respiratory: Reports: No Symptoms Cardiovascular: Reports: No Symptoms GI/Abdominal: Reports: No Symptoms Genitourinary: Reports: No Symptoms Musculoskeletal: Reports: Other (left buttock pain, low back pain) Skin: Reports: No Symptoms. Denies: Bruising, Wound Neurological: Reports: No Symptoms Psychiatric: Reports: No Symptoms ED EXAM, GENERAL - Physical Exam Exam: See Below Exam Limited By: No Limitations General Appearance: Alert, WD/WN, No Apparent Distress Ears: Normal External Exam, Hearing Grossly Normal Nose: Normal Inspection Throat/Mouth: Normal Inspection, Normal Lips, Normal Voice, No Airway Compromise Head: Atraumatic, Normocephalic Neck: Normal Inspection, Supple Respiratory/Chest: No Respiratory Distress, Lungs Clear, Normal Breath Sounds, Chest Non-Tender Cardiovascular: Normal Peripheral Pulses, Regular Rate, Rhythm, No Edema, No Murmur GI/Abdominal: Normal Bowel Sounds, Soft, Non-Tender (Female) Exam: Deferred Rectal (Female) Exam: Deferred Back Exam: Normal Inspection, Other (low back pain with active movement of left lower extremity) Extremities: Normal Inspection, Normal Capillary Refill, Other (pain to left ischium. Pain with laying still or movement) Neurological: Alert, Oriented, Normal Cognition Psychiatric: Normal Affect, Normal Mood Skin Exam: Warm, Dry, Intact, Normal Color, No Rash, Other (no bruising or abrasion to left buttock) Lymphatic: No Adenopathy Course - Vital Signs Last Recorded V/S: Last Vital Signs Temp 99.2 F 10/01/19 14:00 Pulse 102 H 10/01/19 14:00 Resp 20 10/01/19 14:00 BP 136/93 H 10/01/19 14:00 Pulse Ox 100 10/01/19 14:00 - Orders/Labs/Meds Orders: Active Orders 24 hr Category Date Time Status Hip Min 2V or 3V w Pelvis Lt [CR] Stat Exams 10/01/19 14:24 Ordered Departure - Departure Disposition: Home, Self-Care 01 Clinical Impression: Fall, Traumatic ecchymosis of buttock - Discharge Information Referrals: Lorelei Burris NP [Primary Care Provider] - Forms: ED Department Discharge, ED Return to Work/School Form Additional Instructions: Recommend ice, heat, tylenol or motrin for discomfort. Follow-up with your primary care provider 1-2 weeks if not much better. Note given for work. Please return to the ER if your symptoms change or worsen. <Shani Grigsby - Last Filed: 10/01/19 15:40> ED HPI GENERAL MEDICAL PROBLEM - History of Present Illness INITIAL COMMENTS - FREE TEXT/NARRATIVE: I seen the patient. I radha the history of present illness is documented by EVERARDO Monson. Review of Systems - Review of Systems Neurological: Reports: Difficulty Walking (due to left leg pain) ED EXAM, GENERAL - Physical Exam Peripheral Pulses: 3+: Posterior Tibial (L), Posterior Tibial (R), Dorsalis Pedis (L), Dorsalis Pedis (R) Extremities: Normal Range of Motion (no limb length shortening or external or internal rotation; pain with palpation to the ischium) Course - Radiology Interpretation Free Text/Narrative:: xray of the left hip and pelvis shows no acute fracture or dislocations - Re-Assessments/Exams Free Text/Narrative Re-Assessment/Exam: 10/01/19 15:36 I have reviewed the HPI, ROS and PE as documented by EVERARDO Beck. I reviewed the xray results with the patient. Recommend Tylenol, Motrin, ice and heat. Follow-up with primary care provider if not much better 1 weeks. Discharge instructions as documented. Departure - Departure Time of Disposition: 15:37 Condition: Good - Discharge Information *PRESCRIPTION DRUG MONITORING PROGRAM REVIEWED*: No *COPY OF PRESCRIPTION DRUG MONITORING REPORT IN PATIENT CHANTAL: No
--- NOTE | 2019-10-03 06:28 | CR ---
Pelvis and left hip: AP view of the pelvis was obtained as well as AP and frog-leg lateral views of the left hip. Comparison: No previous study. Joint spaces within both hips are maintained. Minimal sclerosis along the left sacroiliac joint is seen and is believed to be incidental at this time. No acute fracture or other bony abnormality is seen. Impression: 1. Slight sclerosis along the left sacroiliac joint believed to be incidental. 2. AP pelvis and two-view left hip exam is otherwise unremarkable. Diagnostic code #2 This report was dictated in [place] Standard Time
== END 2019-10-01 15:52 | disposition home or self-care (01) ==
LOC: JD.ED 13:45
DX: S30.0XXA Contusion of lower back and pelvis, initial encounter (principal); I10 Essential (primary) hypertension; M19.90 Unspecified osteoarthritis, unspecified site; F17.210 Nicotine dependence, cigarettes, uncomplicated; Z88.8 Allergy status to other drugs, medicaments and biological substances; Z88.5 Allergy status to narcotic agent; Z79.899 Other long term (current) drug therapy; W00.0XXA Fall on same level due to ice and snow, initial encounter
CPT/HCPCS: 73502-26-LT; 73502-LT; 99282; 99283-25

== ENCOUNTER 2019-10-12 23:23 | Emergency (ER) | payer BC ==
[2019-10-12 23:38] VITALS: BP 120/86; PULSE 102
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
--- NOTE | 2019-10-13 06:32 | CR ---
Right foot: 4 views of the right foot were obtained. Comparison: No previous exam. Joint spaces are preserved. Lucent line is identified within the distal cuboid bone. Difficult to exclude a nondisplaced fracture. This is noted on the oblique view. No additional fracture or other bony abnormality is seen. Impression: 1. Lucent line within the distal cuboid bone, disc occult to exclude fracture. CT study would be confirmatory if clinically needed. 2. No additional abnormality is seen on right foot study. Diagnostic code #3 This report was dictated in [place] Standard Time
== END 2019-10-13 00:29 | disposition home or self-care (01) ==
LOC: JD.ED 23:23
DX: S00.83XA Contusion of other part of head, initial encounter (principal); S40.022A Contusion of left upper arm, initial encounter; S90.31XA Contusion of right foot, initial encounter; F17.210 Nicotine dependence, cigarettes, uncomplicated; Z88.5 Allergy status to narcotic agent; Z88.8 Allergy status to other drugs, medicaments and biological substances; Z79.899 Other long term (current) drug therapy; Y04.8XXA Assault by other bodily force, initial encounter
CPT/HCPCS: 73630-26-RT; 73630-RT; 99282; 99283-25

== ENCOUNTER 2019-12-13 20:31 | Emergency (ER) | payer SELFPAY ==
[2019-12-13 21:00] VITALS: BP 130/97; PULSE 102
[2019-12-13] MEDS ORDERED: Lidocaine 1% 10 ML MDV INJECT ONE (21:34)
--- NOTE | 2019-12-13 21:44 | EDM.PDOC ---
ED HPI GENERAL MEDICAL PROBLEM - General Chief Complaint: Laceration Stated Complaint: HEAD LACERATION Time Seen by Provider: 12/13/19 20:53 Source of Information: Reports: Patient, RN Notes Reviewed History Limitations: Reports: No Limitations - History of Present Illness INITIAL COMMENTS - FREE TEXT/NARRATIVE: Patient is a 29-year-old female who presents to the ED for a head laceration. The patient states that she had a migraine earlier today, so she was going to the coffee shop to get some caffeine to help alleviate her headache. When she tripped on the outdoor mat, and ended up smashing her face into the side of the building. She does note that she also took her Imitrex shot for her migraine when she got home at 8 PM. She is up-to-date on her immunizations, but she does have a roughly 2 cm laceration to just above her left eyebrow. This is not overly deep, but does want to keep oozing blood. Left Face/Facial Pain Score (Numeric/FACES): 6 - Related Data Allergies Allergy/AdvReac Type Severity Reaction Status Date / Time gentamicin [Gentamicin] Allergy Redness Verified 10/12/19 23:38 morphine Allergy Hives Verified 10/12/19 23:38 buspirone HCl [From BuSpar] AdvReac Confusion Verified 10/12/19 23:38 prednisone AdvReac Tachycardia Verified 10/12/19 23:38 sertraline AdvReac Tachycardia Verified 10/12/19 23:38 Home Meds: Home Meds SUMAtriptan [Imitrex Pen Injector Kit] 6 mg SQ ASDIRECTED PRN 02/01/14 [History] ALPRAZolam [Xanax] 0.5 mg PO TID PRN 01/02/16 [History] Ketorolac [Toradol] 60 mg IM Q6H PRN 02/17/16 [History] Amitriptyline [Elavil] 150 mg PO BEDTIME 03/14/16 [History] DULoxetine [Cymbalta] 60 mg PO DAILY 08/08/16 [History] Ondansetron [Zofran] 8 mg PO BID PRN 08/08/16 [History] atenoloL [Atenolol] 50 mg PO BID 08/08/16 [History] Cyclobenzaprine [Flexeril] 10 mg PO TID PRN #20 tablet 10/29/16 [Rx] Magnesium Amino Acid Chelate [Magnesium] 1 tab PO DAILY 10/29/16 [History] Past Medical History HEENT History: Reports: Other (See Below) Other HEENT History: oral surgery- 2 teeth extracted on left upper and lower Cardiovascular History: Reports: Hypertension, Other (See Below) Other Cardiovascular History: takes atenolol for history of tachycardia and migraines Gastrointestinal History: Reports: GERD, PUD Genitourinary History: Reports: Renal Calculus CLEAN OUT DRILLER History: Reports: Fibroids, Other CLEAN OUT DRILLER History: Pt reports "not now." exploratory laproscopy on 05-15-2016 Musculoskeletal History: Reports: Arthritis, Fracture Other Musculoskeletal History: Right radial fracture Neurological History: Reports: Migraines, Seizure Other Neuro History: has been on botox injection about 1 year now Psychiatric History: Reports: Addiction, Anxiety, Depression Other Psychiatric History: drug seeking behaviors Hematologic History: Reports: Other (See Below) Other Hematologic History: superficial blood clot 2013 - Infectious Disease History Infectious Disease History: Reports: Chicken Pox - Past Surgical History HEENT Surgical History: Reports: Oral Surgery Female Surgical History: Reports: D&C Musculoskeletal Surgical History: Reports: Arthroscopic Knee, ORIF Dermatological Surgical History: Reports: Plastic Surgical Reconstruction/Repair Social & Family History - Family History Family Medical History: Noncontributory - Tobacco Use Smoking Status *Q: Current Every Day Smoker Years of Tobacco use: 11 Packs/Tins Daily: 0.2 - Caffeine Use Caffeine Use: Reports: Soda, Tea - Recreational Drug Use Recreational Drug Use: No - Living Situation & Occupation Living situation: Reports: (), Alone Occupation: Employed ([employer]) ED ROS GENERAL - Review of Systems Review Of Systems: Comprehensive ROS is negative, except as noted in HPI. Skin: Reports: Wound (See HPI) ED EXAM, SKIN/RASH Exam: See Below Exam Limited By: No Limitations General Appearance: Alert, WD/WN, No Apparent Distress Eye Exam: Bilateral Eye: EOMI, Normal Inspection, PERRL Ears: Normal External Exam, Normal Canal, Hearing Grossly Normal, Normal TMs Nose: Normal Inspection Throat/Mouth: Normal Inspection, Normal Lips, Normal Teeth, Normal Gums, Normal Oropharynx, Normal Voice, No Airway Compromise Head: Normocephalic, Other (Facial laceration to just above the left eyebrow, this is 2 cm, fairly linear in fashion) Neck: Normal Inspection, Supple, Non-Tender, Full Range of Motion Respiratory/Chest: No Respiratory Distress, Lungs Clear, Normal Breath Sounds, No Accessory Muscle Use, Chest Non-Tender Cardiovascular: Normal Peripheral Pulses, Regular Rate, Rhythm, No Murmur Extremities: Normal Inspection, Normal Capillary Refill Neurological: Alert, Oriented, Normal Cognition, No Motor/Sensory Deficits Psychiatric: Normal Affect, Normal Mood Skin: Warm, Dry, Normal Color, No Rash, Wound/Incision (Facial laceration to just above the left eyebrow, this is 2 cm, fairly linear in fashion) Location, Skin: Face ED SKIN PROCEDURES - Laceration/Wound Repair Left Lateral Face Appearance: Superficial, Clean Distal NVT: Neuro & Vascular Intact, No Tendon Injury Anesthetic Type: Local Local Anesthesia - Lidocaine (Xylocaine): 1% Plain Local Anesthetic Volume: 3cc Skin Prep: Chlorhexidine (Hibiciens), Saline Exploration/Debridement/Repair: Wound Explored, In a Bloodless Field, Explored to Base, No Foreign Material Found Closed with: Sutures Lac/Wound length In cm: 2 Suture Size: 6-0 # of Sutures: 7 Suture Type: Prolene, Interrupted, Simple Sterile Dressing Applied: Nurse Tetanus Status Addressed: Yes Complications: No Course - Vital Signs Last Recorded V/S: Last Vital Signs Temp 98.5 F 12/13/19 20:55 Pulse 102 H 12/13/19 20:55 Resp 20 12/13/19 20:55 BP 130/97 H 12/13/19 20:55 Pulse Ox 100 12/13/19 20:55 - Orders/Labs/Meds Meds: Medications Discontinued Medications Generic Name Dose Route Start Last Admin Trade Name Rik PRN Reason Stop Dose Admin Lidocaine HCl 10 ml 12/13/19 21:34 Xylocaine 1% INJECT 12/13/19 21:35 ONETIME ONE Departure - Departure Time of Disposition: 21:47 Disposition: Home, Self-Care 01 Condition: Fair Clinical Impression: Facial laceration Qualifiers: Encounter type: initial encounter Qualified Code(s): S01.81XA - Laceration without foreign body of other part of head, initial encounter - Discharge Information *PRESCRIPTION DRUG MONITORING PROGRAM REVIEWED*: No *COPY OF PRESCRIPTION DRUG MONITORING REPORT IN PATIENT CHANTAL: No Instructions: Facial Laceration, [id number], Sutured Wound Care, [id number] Referrals: Lorelei Burris NP [Primary Care Provider] - Forms: ED Department Discharge Additional Instructions: You have been evaluated in the ED for your laceration. Sutures will need to stay in for 5-7 days (12/19-12/21). You may return to the ED or clinic for removal. Please keep this area clean and dry, you may cleanse with regular soap and water. No vigorous scrubbing. Watch out for signs of infection like increased redness, swelling, pain at the laceration site, or if you should develop any fevers or chills. Please return to ED if your symptoms change or worsen. Sepsis Event Note - Evaluation Sepsis Screening Result: No Definite Risk - Focused Exam Vital Signs: Vital Signs Temp Pulse Resp BP Pulse Ox 12/13/19 20:55 98.5 F 102 H 20 130/97 H 100 Date Exam was Performed: 12/13/19 Time Exam was Performed: 22:14
== END 2019-12-13 22:18 | disposition home or self-care (01) ==
LOC: JD.ED 20:31
DX: S01.81XA Laceration without foreign body of other part of head, initial encounter (principal); G43.909 Migraine, unspecified, not intractable, without status migrainosus; I10 Essential (primary) hypertension; F41.9 Anxiety disorder, unspecified; F32.9 Major depressive disorder, single episode, unspecified; F17.210 Nicotine dependence, cigarettes, uncomplicated; Z88.1 Allergy status to other antibiotic agents; Z88.5 Allergy status to narcotic agent; Z88.8 Allergy status to other drugs, medicaments and biological substances; Z79.899 Other long term (current) drug therapy; W01.10XA Fall on same level from slipping, tripping and stumbling with subsequent striking against unspecified object, initial encounter; Y93.89 Activity, other specified; Y92.89 Other specified places as the place of occurrence of the external cause
CPT/HCPCS: 12011; 99282; J2001

== ENCOUNTER 2020-02-26 12:04 | Emergency (ER) | payer BC, OTHER ==
[2020-02-26 12:19] VITALS: PULSE 108
[2020-02-26] MEDS ORDERED: Haloperidol Lactate 5 MG/ML SDV IM ONE (12:34)
[2020-02-26] MEDS ORDERED: Benztropine 1 MG Tab PO STA (12:34)
--- NOTE | 2020-02-26 12:40 | EDM.PDOC ---
ED HPI GENERAL MEDICAL PROBLEM - General Chief Complaint: Headache Stated Complaint: MIGRAINE X 5 DAYS Time Seen by Provider: 02/26/20 12:16 Source of Information: Reports: Patient History Limitations: Reports: No Limitations - History of Present Illness INITIAL COMMENTS - FREE TEXT/NARRATIVE: Ms. Toledo is a 30-year-old woman with a past medical history significant for migraines, a seizure disorder, anxiety/depression, and an addiction to opioids, who now presents to the ED stating that she developed a migraine headache 5 days ago, 02/21/2020. The pain is felt across her forehead. She initially had increased pain behind her left eye, which switched to increased pain behind her right eye. She has had nausea, but no vomiting. No photophobia or phonophobia. She reports some spotty vision. No neurologic symptoms, such as tingling, numbness, or weakness. She states that her current headache is the same as prior migraine headaches. The patient states that she has taken subcutaneous Imitrex, IM Toradol, and Zofran ODT, all without relief. Here in the ED, the patient is found to be hemodynamically stable, although mildly tachycardic at 108 bpm, afebrile, saturating 100% on room air. Other than her headache and nausea, the patient denies recent fever, chills, sore throat, ear pain, nasal or sinus congestion, cough, dyspnea, chest pain, palpitations, vomiting, constipation, diarrhea, abdominal pain, urinary symptoms , recent weight gain or weight loss, recent bloody bowel movements or black bowel movements, recent joint aches, or rashes. The patient's PCP is Lorelei Burris NP. She does not have a Neurologist. Frontal Headache Pain Score (Numeric/FACES): 9 - Related Data Allergies Allergy/AdvReac Type Severity Reaction Status Date / Time gentamicin [Gentamicin] Allergy Redness Verified 02/26/20 12:19 morphine Allergy Hives Verified 02/26/20 12:19 buspirone HCl [From BuSpar] AdvReac Confusion Verified 02/26/20 12:19 prednisone AdvReac Tachycardia Verified 02/26/20 12:19 sertraline AdvReac Tachycardia Verified 02/26/20 12:19 Home Meds: Home Meds SUMAtriptan [Imitrex Pen Injector Kit] 6 mg SQ ASDIRECTED PRN 02/01/14 [History] Ketorolac [Toradol] 60 mg IM Q6H PRN 02/17/16 [History] Amitriptyline [Elavil] 150 mg PO BEDTIME 03/14/16 [History] DULoxetine [Cymbalta] 60 mg PO DAILY 08/08/16 [History] Ondansetron [Zofran] 8 mg PO BID PRN 08/08/16 [History] Cyclobenzaprine [Flexeril] 10 mg PO TID PRN #20 tablet 10/29/16 [Rx] Magnesium Amino Acid Chelate [Magnesium] 1 tab PO DAILY 10/29/16 [History] Aspirin/Acetaminophen/Caffeine [Excedrin Migraine Caplet] 2 tab PO Q6H PRN 02/25 [History] Verapamil HCl [Verapamil ER] 120 mg PO BEDTIME 02/26/20 [History] Past Medical History HEENT History: Reports: Other (See Below) Gastrointestinal History: Reports: GERD 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: Reports: Fibroids Musculoskeletal History: Reports: Arthritis, Fracture (right radius) Neurological History: Reports: Migraines, Seizure Psychiatric History: Reports: Addiction (opioids), Anxiety, Depression - Infectious Disease History Infectious Disease History: Reports: Chicken Pox - Past Surgical History HEENT Surgical History: Reports: Oral Surgery (dental extractions) Female Surgical History: Reports: D&C (x 1) Musculoskeletal Surgical History: Reports: Arthroscopic Knee (left), ORIF ( right hand) Social & Family History - Family History Family Medical History: Noncontributory - Tobacco Use Smoking Status *Q: Current Every Day Smoker Years of Tobacco use: 12 Packs/Tins Daily: 0.2 Packs/Tins Daily Comment: Down from 10/27 ppd - Caffeine Use Caffeine Use: Reports: Soda, Tea - Alcohol Use Alcohol Use History: Yes Alcohol Use Frequency: Rarely - Recreational Drug Use Recreational Drug Use: Yes Drug Use in Last 12 Months: No Recreational Drug Type: Reports: Marijuana/Hashish (last smoked as a teenager) - Living Situation & Occupation Living situation: Reports: (), with Spouse, with Family (1 child) Occupation: Employed ([employer]) ED ROS GENERAL - Review of Systems Review Of Systems: Comprehensive ROS is negative, except as noted in HPI. - Physical Exam Exam: See Below Exam Limited By: No Limitations General Appearance: Alert, WD/WN, No Apparent Distress (appears to be comfortable) Eye Exam: Bilateral Eye: EOMI, Normal Inspection, PERRL Ears: Normal External Exam, Normal Canal, Hearing Grossly Normal, Normal TMs Nose: Normal Inspection, Normal Mucosa, No Blood Throat/Mouth: Normal Inspection, Normal Lips, Normal Teeth, Normal Gums, Normal Oropharynx, Normal Voice, No Airway Compromise Head Exam: Atraumatic, Normocephalic Neck: Normal Inspection, Supple, Non-Tender, Full Range of Motion. No: Lymphadenopathy (L), Lymphadenopathy (R) Respiratory/Chest: No Respiratory Distress, Lungs Clear, Normal Breath Sounds, No Accessory Muscle Use Cardiovascular: Normal Peripheral Pulses, Regular Rate, Rhythm, No Edema, No Gallop, No JVD, No Murmur, No Rub GI/Abdominal: Normal Bowel Sounds, Soft, Non-Tender, No Organomegaly, No Distention, No Abnormal Bruit, No Mass (Female) Exam: Deferred Rectal (Female) Exam: Deferred Neuro Exam (Abbreviated): Alert, Oriented, CN II-XII Intact, Normal Cognition, No Motor/Sensory Deficits Back Exam: Normal Inspection, Full Range of Motion, NT Extremities: Normal Inspection, Normal Range of Motion, No Pedal Edema, Normal Capillary Refill Psychiatric: Normal Affect Skin Exam: Warm, Dry, Intact, Normal Color, No Rash Course - Vital Signs Last Recorded V/S: Last Vital Signs Temp 36.8 C 02/26/20 12:05 Pulse 108 H 02/26/20 12:05 Resp 18 02/26/20 13:20 BP 109/87 02/26/20 13:20 Pulse Ox 100 02/26/20 12:05 - Orders/Labs/Meds Meds: Medications Discontinued Medications Generic Name Dose Route Start Last Admin Trade Name Freq PRN Reason Stop Dose Admin Benztropine Mesylate 1 mg 02/26/20 12:34 02/26/20 12:42 Cogentin PO 02/26/20 12:35 1 mg ONETIME STA Administration Haloperidol Lactate 5 mg 02/26/20 12:34 02/26/20 12:42 Haldol IM 02/26/20 12:35 5 mg ONETIME ONE Administration - Re-Assessments/Exams Free Text/Narrative Re-Assessment/Exam: 05/03/20 12:34 As above, the patient is complaining of a migraine, typical for her. She has had good relief with IM Haldol in the past, therefore I will order the same again today. The patient requested no IV, therefore she will get oral Cogentin , but no IV fluid or IV Zofran. She requested IM Benadryl, however, the patient has a history of Benadryl abuse, therefore I explained to the patient that we will be treating with oral Cogentin, but not Benadryl. 02/26/20 13:06 Notified by Lexis REEVES that the patient's pain is now down to a "3", and that she is ready to go home. 02/26/20 13:10 The patient declined an offer to renew any prescriptions or a note for work. Departure - Departure Time of Disposition: 13:06 Disposition: Home, Self-Care 01 Condition: Good Clinical Impression: Migraine headache - Discharge Information *PRESCRIPTION DRUG MONITORING PROGRAM REVIEWED*: Not Applicable *COPY OF PRESCRIPTION DRUG MONITORING REPORT IN PATIENT CHANTAL: Not Applicable Instructions: Migraine Headache, [id number] Referrals: Lorelei Burris NP [Primary Care Provider] - Forms: ED Department Discharge Additional Instructions: You were seen in the emergency room after experiencing 5 days of a migraine headache. Treatment in the ER included IM Haldol and oral Cogentin, which worked very well to nearly eliminate your headache. We recommend that you stay adequately hydrated and get plenty of rest in a dark , quiet place. Continue your usual prescription medications. If any other problems, please do not hesitate to return to the ER. Sepsis Event Note - Evaluation Sepsis Screening Result: No Definite Risk - Focused Exam Vital Signs: Vital Signs Temp Pulse Resp BP Pulse Ox 02/26/20 13:20 18 109/87 02/26/20 12:05 36.8 C 108 H 18 134/101 H 100 Date Exam was Performed: 02/26/20 Time Exam was Performed: 13:22
[2020-02-26 13:21] VITALS: BP 109/87
== END 2020-02-26 13:20 | disposition home or self-care (01) ==
LOC: SUPCPDRO 12:04 → JD.ED 12:04
DX: G43.909 Migraine, unspecified, not intractable, without status migrainosus (principal); G40.909 Epilepsy, unspecified, not intractable, without status epilepticus; F41.9 Anxiety disorder, unspecified; F32.9 Major depressive disorder, single episode, unspecified; F17.210 Nicotine dependence, cigarettes, uncomplicated; Z88.8 Allergy status to other drugs, medicaments and biological substances; Z88.5 Allergy status to narcotic agent; Z88.1 Allergy status to other antibiotic agents; Z79.899 Other long term (current) drug therapy; Z79.82 Long term (current) use of aspirin
CPT/HCPCS: 96372; 99283; A9270; J1630

== ENCOUNTER 2020-08-22 15:35 | Emergency (ER) | payer OTHER ==
[2020-08-22] MEDS ORDERED: Lidocaine 1% 10 ML MDV INJECT ONE (16:17)
[2020-08-22] MEDS ORDERED: cefTRIAXone 2 GM in Sodium Chloride 0.9% 100 ML IV SCH (16:30)
--- NOTE | 2020-08-22 17:21 | EDM.PDOC ---
ED HPI GENERAL MEDICAL PROBLEM - General Chief Complaint: Skin Complaint Stated Complaint: FEVER/RT ARM ABSCESS Time Seen by Provider: 08/22/20 15:45 Source of Information: Reports: Patient History Limitations: Reports: No Limitations - History of Present Illness INITIAL COMMENTS - FREE TEXT/NARRATIVE: Patient is a 30-year-old female presenting to the emergency department with complaints of an abscess on her right arm. She was seen in the walk-in clinic prior to coming to the ER and was sent here due to the size of the abscess, or fever, and her tachycardia. She states that she scratched her arm on a staple of her pouch about 3 days ago. Last evening she started having increased swelling which has gradually progressed into today. Her heart rate on triage was found to be elevated at 146. I did come down to 130 with rest. After discussion with the patient, she has chronic tachycardia for which she takes atenolol, however she did not take it last evening. She states that when she does not take her atenolol, her heart rate is generally in the 130s. Her temperature in triage was 99.7. She states she has been running a low-grade fever since last night. She denies any nausea or vomiting. Right Upper Arm Pain Score (Numeric/FACES): 8 - Related Data Allergies Allergy/AdvReac Type Severity Reaction Status Date / Time gentamicin [Gentamicin] Allergy Redness Verified 02/26/20 12:19 morphine Allergy Hives Verified 02/26/20 12:19 buspirone HCl [From BuSpar] AdvReac Confusion Verified 02/26/20 12:19 prednisone AdvReac Tachycardia Verified 02/26/20 12:19 sertraline AdvReac Tachycardia Verified 02/26/20 12:19 Home Meds: Home Meds SUMAtriptan [Imitrex Pen Injector Kit] 6 mg SQ ASDIRECTED PRN 02/01/14 [History] Ketorolac [Toradol] 60 mg IM Q6H PRN 02/17/16 [History] Amitriptyline [Elavil] 150 mg PO BEDTIME 03/14/16 [History] DULoxetine [Cymbalta] 60 mg PO DAILY 08/08/16 [History] Aspirin/Acetaminophen/Caffeine [Excedrin Migraine Caplet] 2 tab PO Q6H PRN 02/26/20 [History] Verapamil HCl [Verapamil ER] 120 mg PO BEDTIME 02/26/20 [History] Doxycycline [Vibramycin] 100 mg PO BID #20 tab 08/22/20 [Rx] Magnesium Oxide [Magnesium] 400 mg PO DAILY 08/22/20 [History] Past Medical History - Past Health History Medical/Surgical History: Denies Medical/Surgical History HEENT History: Reports: Other (See Below) Other HEENT History: oral surgery- 2 teeth extracted on left upper and lower Cardiovascular History: Reports: Hypertension, Other (See Below) Other Cardiovascular History: takes atenolol for history of tachycardia and migraines Respiratory History: Reports: None Gastrointestinal History: Reports: GERD Genitourinary History: Reports: Renal Calculus CLINICAL COUNSELOR History: Reports: Fibroids Other CLINICAL COUNSELOR History: Pt reports "not now." exploratory laproscopy on 05-15-2016 Musculoskeletal History: Reports: Arthritis, Fracture Other Musculoskeletal History: Right radial fracture Neurological History: Reports: Migraines, Seizure Other Neuro History: has been on botox injection about 1 year now Psychiatric History: Reports: Addiction, Anxiety, Depression Other Psychiatric History: drug seeking behaviors Endocrine/Metabolic History: Reports: None Hematologic History: Reports: Other (See Below) Other Hematologic History: superficial blood clot 2013 Immunologic History: Reports: None Oncologic (Cancer) History: Reports: None - Infectious Disease History Infectious Disease History: Reports: Chicken Pox - Past Surgical History HEENT Surgical History: Reports: Oral Surgery Female Surgical History: Reports: D&C Musculoskeletal Surgical History: Reports: Arthroscopic Knee, ORIF Social & Family History - Family History Family Medical History: Noncontributory - Tobacco Use Tobacco Use Status *Q: Former Tobacco User Used Tobacco, but Quit: Yes Month/Year Tobacco Last Used: 7 months - Caffeine Use Caffeine Use: Reports: Soda, Tea - Recreational Drug Use Recreational Drug Use: No - Living Situation & Occupation Living situation: Reports: (), with Spouse, with Family (1 child) Occupation: Employed ([employer] @ [employer]) ED ROS GENERAL - Review of Systems Review Of Systems: See Below Constitutional: Reports: Fever. Denies: Weakness, Fatigue HEENT: Reports: No Symptoms Respiratory: Reports: No Symptoms. Denies: Shortness of Breath, Cough Cardiovascular: Reports: No Symptoms Endocrine: Reports: No Symptoms GI/Abdominal: Denies: Abdominal Pain, Diarrhea, Nausea, Vomiting : Reports: No Symptoms Musculoskeletal: Reports: No Symptoms Skin: Reports: Other (Abscess to right medial upper arm) Neurological: Reports: No Symptoms Psychiatric: Reports: No Symptoms Hematologic/Lymphatic: Reports: No Symptoms Immunologic: Reports: No Symptoms ED EXAM, SKIN/RASH Exam: See Below General Appearance: Alert, WD/WN, No Apparent Distress, Other (non-toxic appearing.) Respiratory/Chest: No Respiratory Distress, Lungs Clear, Normal Breath Sounds, No Accessory Muscle Use, Chest Non-Tender Cardiovascular: Normal Peripheral Pulses, Regular Rate, Rhythm, No Edema, No Gallop, No JVD, No Murmur, No Rub GI/Abdominal: Normal Bowel Sounds, Soft, Non-Tender, No Organomegaly, No Diste ntion, No Abnormal Bruit, No Mass Neurological: Alert, Oriented, CN II-XII Intact, Normal Cognition, Normal Gait, Normal Reflexes, No Motor/Sensory Deficits Skin: Other (3cm mostly healed laceration to the inner aspect of the right upper arm. 5 cm proximal area of induration and swelling.) ED SKIN PROCEDURES - I&D Site: right medial upper arm Skin Prep: Chlorhexidine (Hibiciens), Providone-Iodine (Betadine) Local Anesthesia: Lidocaine: 1% Plain Local Anesthetic Volume: 2cc Area Incised With: 11 Blade Drainage: Purulent, Bloody, Large Amount Probed to Break Up Loculations: Yes Packed With: 1/2 in. Iodoform Sterile Dressing: None (telfa gauze) Complications: No Course - Vital Signs Last Recorded V/S: Last Vital Signs Temp 99.8 F 08/22/20 18:00 Pulse 115 H 08/22/20 18:00 Resp 20 08/22/20 18:00 BP 117/85 08/22/20 18:00 Pulse Ox 100 08/22/20 18:00 - Orders/Labs/Meds Orders: Active Orders 24 hr Category Date Time Status CULTURE BLOOD [BC] Stat Lab 08/22/20 16:52 Received CULTURE WOUND [RM] Stat Lab 08/22/20 17:00 Results Blood Culture x2 Reflex Set [OM.PC] Stat Oth 08/22/20 16:04 Ordered Labs: Laboratory Tests 08/22/20 08/22/20 08/22/20 Range/Units 16:52 16:52 16:52 WBC 10.89 H (3.98-10.04) K/mm3 RBC 4.27 (3.98-5.22) M/mm3 Hgb 11.9 D (11.2-15.7) gm/dl Hct 35.9 (34.1-44.9) % MCV 84.1 D (79.4-94.8) fl MCH 27.9 (25.6-32.2) pg MCHC 33.1 (32.2-35.5) g/dl RDW Std Deviation 37.7 (36.4-46.3) fL Plt Count 378 H (182-369) K/mm3 MPV 8.7 L (9.4-12.3) fl Neut % (Auto) 73.2 H (34.0-71.1) % Lymph % (Auto) 14.5 L (19.3-51.7) % Gladwin % (Auto) 11.1 (4.7-12.5) % Eos % (Auto) 0.4 L (0.7-5.8) Baso % (Auto) 0.2 (0.1-1.2) % Neut # (Auto) 7.98 H (1.56-6.13) K/mm3 Lymph # (Auto) 1.58 (1.18-3.74) K/mm3 Gladwin # (Auto) 1.21 H (0.24-0.36) K/mm3 Eos # (Auto) 0.04 (0.04-0.36) K/mm3 Baso # (Auto) 0.02 (0.01-0.08) K/mm3 Manual Slide Review Normal smear Sodium 139 (136-145) mEq/L Potassium 4.1 (3.5-5.1) mEq/L Chloride 103 (98-107) mEq/L Carbon Dioxide 25 (21-32) mEq/L Anion Gap 15.1 H (5-15) BUN 10 (7-18) mg/dL Creatinine 0.7 (0.55-1.02) mg/dL Est Cr Clr Drug Dosing 120.58 mL/min Estimated GFR (MDRD) > 60 (>60) mL/min BUN/Creatinine Ratio 14.3 (14-18) Glucose 96 (74-106) mg/dL Lactic Acid 1.4 (0.4-2.0) mmol/L Calcium 8.5 (8.5-10.1) mg/dL Total Bilirubin 0.3 (0.2-1.0) mg/dL AST 28 (15-37) U/L ALT 32 (14-59) U/L Alkaline Phosphatase 115 (46-116) U/L C-Reactive Protein 3.2 H* (<1.0) mg/dL Total Protein 7.8 (6.4-8.2) g/dl Albumin 3.0 L (3.4-5.0) g/dl Globulin 4.8 gm/dL Albumin/Globulin Ratio 0.6 L (1-2) Meds: Medications Discontinued Medications Generic Name Dose Route Start Last Admin Trade Name Freq PRN Reason Stop Dose Admin Doxycycline Hyclate 200 mg 08/22/20 17:41 08/22/20 17:58 Vibramycin PO 08/22/20 17:42 200 mg ONETIME ONE Administration Ceftriaxone Sodium 2 gm/ 100 mls @ 200 mls/hr 08/22/20 16:30 08/22/20 17:05 Sodium Chloride IV 200 mls/hr Q24H THANIA Administration Influenza Virus Vaccine 1 each 08/22/20 17:54 Pharmacy To Dose - Influenza Vaccine IM 08/22/20 17:55 ONETIME ONE Influenza Virus Vaccine 60 mcg 08/22/20 18:00 08/22/20 18:13 Fluzone Quad [id number] Syringe IM 08/22/20 18:01 60 mcg .ONCE ONE Administration Lidocaine HCl 10 ml 08/22/20 16:17 08/22/20 16:40 Xylocaine 1% INJECT 08/22/20 16:18 10 ml ONETIME ONE Administration - Re-Assessments/Exams Free Text/Narrative Re-Assessment/Exam: Patient is a 30-year-old female presenting to the emergency department with complaints of an abscess to the inner aspect of her right upper arm. She states that she cut her arm on a couch staple a few days back. Patient has been seen in this emergency department in the past and does have a history of IV drug abuse, however she denies intravenous drug use at this time. On exam, the abscess about 5 cm in induration. There is an obvious head to the abscess. I did a bedside ultrasound which does show a large hypoechoic area beneath the surface. I will plan to I&D the abscess. Blood work will be completed including a CBC, CMP, CRP, lactic acid, blood cultures. Once blood cultures are drawn, we will give Rocephin 2 g IV. 08/22/20 1630 Nursing staff and lab had quite a bit of difficulty getting blood draws or an IV start. They were able to get a 24-gauge IV in her right fourth finger. They were only able to obtain 1 set of blood cultures. Patient appears nontoxic. Her heart rate is come down to 109 even though she has not taken her atenolol today. We will complete only the one set of blood cultures today. 08/22/20 17:31 Abscess to her right arm was I&D. A large amount of purulent fluid was drained. See procedure notes for details. Lab work was significant for a WBC minimally elevated at 10.89, anion gap 15.1, CRP 3.2. Lactic acid was normal at 1.4. Patient has received 2 g of IV Rocephin. We will give her 200 mg of oral doxycycline at this time as well. She will be started on doxycycline for outpatient. Recommend that she leave the packing in the wound for 2 days and then remove it. Discussed return precautions such as worsening fever, nausea, or vomiting. Discharge instructions as documented. Departure - Departure Time of Disposition: 17:41 Disposition: Home, Self-Care 01 Condition: Good Clinical Impression: Abscess - Discharge Information *PRESCRIPTION DRUG MONITORING PROGRAM REVIEWED*: No *COPY OF PRESCRIPTION DRUG MONITORING REPORT IN PATIENT CHANTAL: No Prescriptions: Doxycycline [Vibramycin] 100 mg PO BID #20 tab Instructions: Skin Abscess Referrals: Rena Sheikh PA-C [Primary Care Provider] - Forms: ED Department Discharge Additional Instructions: You were seen in the emergency department today for an abscess to your right upper arm. Blood work was completed and found to be overall normal. There is not any signs of systemic infection at this point. While in the ER, the abscess was opened and packed. This packing should stay in for 2 days. After that time you can remove it by pulling on the tail that is hanging out of the wound. Would recommend keeping the wound covered as it would likely drain. You received IV antibiotics in the ER, as well as your first dose of doxycycline. A prescription for doxycycline has been sent to [facility]. Take this as prescribed. You may use [id number] Tylenol and ibuprofen as needed for fever discomfort or discomfort. If you should experience worsening symptoms such as increased fever, chills, nausea, vomiting, or any other symptoms of concern, please not hesitate to return to the emergency department. Sepsis Event Note (ED) - Evaluation Sepsis Screening Result: No Definite Risk - My Orders Last 24 Hours: My Active Orders 08/22/20 16:04 Blood Culture x2 Reflex Set [OM.PC] Stat 08/22/20 16:52 CULTURE BLOOD [BC] Stat 08/22/20 17:00 CULTURE WOUND [RM] Stat - Assessment/Plan Last 24 Hours: My Active Orders 08/22/20 16:04 Blood Culture x2 Reflex Set [OM.PC] Stat 08/22/20 16:52 CULTURE BLOOD [BC] Stat 08/22/20 17:00 CULTURE WOUND [RM] Stat
[2020-08-22] MEDS ORDERED: Doxycycline 100 MG Cap PO ONE (17:41)
[2020-08-22] MEDS ORDERED: FLU VACC QS2020-21(6MOS UP)/PF 60 MCG/0.5 ML SYRINGE IM ONE (18:00)
[2020-08-22 18:01] VITALS: BP 117/85; PULSE 115
== END 2020-08-22 18:25 | disposition home or self-care (01) ==
LOC: JD.ED 15:35
DX: L02.413 Cutaneous abscess of right upper limb (principal); M19.90 Unspecified osteoarthritis, unspecified site; I10 Essential (primary) hypertension; Z88.1 Allergy status to other antibiotic agents; Z88.5 Allergy status to narcotic agent; Z88.8 Allergy status to other drugs, medicaments and biological substances; Z79.82 Long term (current) use of aspirin; Z79.899 Other long term (current) drug therapy; Z87.891 Personal history of nicotine dependence; Z23 Encounter for immunization
CPT/HCPCS: 10061; 36415; 80053; 83605; 85025; 86140; 87040; 87070; 87077; 87186; 90471; 90686; 96365; 99283; A9270; J0696; J2001; J7050; G0008

== ENCOUNTER 2020-09-27 08:56 | Emergency (ER) | payer OTHER ==
[2020-09-27 09:06] VITALS: BP 131/86; PULSE 117
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
== END 2020-09-27 09:48 | disposition home or self-care (01) ==
LOC: JD.ED 08:56
DX: T22.211A Burn of second degree of right forearm, initial encounter (principal); L03.113 Cellulitis of right upper limb; I10 Essential (primary) hypertension; F41.9 Anxiety disorder, unspecified; F32.9 Major depressive disorder, single episode, unspecified; M19.90 Unspecified osteoarthritis, unspecified site; F17.210 Nicotine dependence, cigarettes, uncomplicated; Z88.1 Allergy status to other antibiotic agents; Z88.5 Allergy status to narcotic agent; Z88.8 Allergy status to other drugs, medicaments and biological substances; Z79.82 Long term (current) use of aspirin; Z79.899 Other long term (current) drug therapy
CPT/HCPCS: 99283; 99284

== ENCOUNTER 2020-10-04 14:45 | Emergency (ER) | payer OTHER ==
[2020-10-04 15:23] VITALS: BP 130/87; PULSE 79
--- NOTE | 2020-10-04 15:50 | EDM.PDOC ---
ED HPI GENERAL MEDICAL PROBLEM - General Chief Complaint: Upper Extremity Injury/Pain Stated Complaint: POSSIBLE CELLULITIS IN RT ARM SENT BY DR WALL Time Seen by Provider: 10/04/20 15:27 Source of Information: Reports: Patient, RN Notes Reviewed History Limitations: Reports: No Limitations - History of Present Illness INITIAL COMMENTS - FREE TEXT/NARRATIVE: Patient is a 30-year-old female presents to the ER today for her possible cellulitis abscess in her right arm. The patient was evaluated in this ER a roughly 1 week ago, for a burn secondary to a straightening iron. The patient did follow-up with Dr. Wall, and ended up having some burn salve prescribed to her, and had an ultrasound done on a bump or lump on her right upper inner forearm. This was found to be an old soft tissue injury and was negative for DVT as reported by Dr. Wall. The patient returns to the ER, due to increased pain, redness/swelling to this area. The area of concern is roughly prune-size in size, not fluctuant, but is red, painful and swollen. She has been using Tylenol and Motrin for pain relief with little relief. Patient ran out of her hydrocodone medication she was given 2 days ago for this. Patient notes she has had a low-grade fever at home, but she is afebrile at time of triage 98.4 F. States she felt like she had mild chills at home but no other sick symptoms like cough or shortness of breath, nausea/vomiting/diarrhea. Patient was placed on oral doxycycline as well, and is set to finish this shortly as well. Right Arm Pain Score (Numeric/FACES): 8 - Related Data Allergies Allergy/AdvReac Type Severity Reaction Status Date / Time gentamicin [Gentamicin] Allergy Severe Redness Verified 10/04/20 15:12 morphine Allergy Severe Hives Verified 10/04/20 15:12 buspirone HCl [From BuSpar] AdvReac Severe Confusion Verified 10/04/20 15:12 prednisone AdvReac Severe Tachycardia Verified 10/04/20 15:12 sertraline AdvReac Severe Tachycardia Verified 10/04/20 15:12 Home Meds: Home Meds SUMAtriptan [Imitrex Pen Injector Kit] 6 mg SQ ASDIRECTED PRN 02/01/14 [History] Ketorolac [Toradol] 60 mg IM Q6H PRN 02/17/16 [History] Amitriptyline [Elavil] 150 mg PO BEDTIME 03/14/16 [History] DULoxetine [Cymbalta] 60 mg PO DAILY 08/08/16 [History] Aspirin/Acetaminophen/Caffeine [Excedrin Migraine Caplet] 2 tab PO Q6H PRN 02/26/20 [History] Magnesium Oxide [Magnesium] 400 mg PO DAILY 08/22/20 [History] ALPRAZolam [Xanax] 0.5 mg PO QID PRN 09/27/20 [History] Ascorbic Acid [Vitamin C] 1,000 mg PO DAILY 09/27/20 [History] Hydrocodone/Acetaminophen [Hydrocodone-Acetamin 5-325 mg] 1 - 2 each PO Q6HR PRN #20 tablet 09/27/20 [Rx] Ondansetron [Zofran ODT] 4 mg PO Q6H PRN 09/27/20 [History] Doxycycline [Doxycycline Monohydrate] 100 mg PO BID 10/04/20 [History] Doxycycline [Vibramycin] 100 mg PO BID 10 Days #20 tab 10/04/20 [Rx] Hydrocodone/Acetaminophen [Hydrocodone-Acetamin 5-325 mg] 1 each PO Q6H PRN #12 tablet 10/04/20 [Rx] Silver Sulfadiazine [Silvadene 1% Cream 25 GM] 1 TOP BID 10/04/20 [History] atenoloL [Atenolol] 50 mg PO BID 10/04/20 [History] Past Medical History HEENT History: Reports: Other (See Below) Other HEENT History: oral surgery- 2 teeth extracted on left upper and lower Cardiovascular History: Reports: Hypertension, Other (See Below) Other Cardiovascular History: takes atenolol for history of tachycardia and migraines Gastrointestinal History: Reports: GERD Genitourinary History: Reports: Renal Calculus LEAD ENGINEER History: Reports: Fibroids Other LEAD ENGINEER History: exploratory laproscopy on 05-15-2016 Musculoskeletal History: Reports: Arthritis, Fracture Other Musculoskeletal History: Right radial fracture Neurological History: Reports: Migraines, Seizure Other Neuro History: has been on botox injection about 1 year now Psychiatric History: Reports: Addiction, Anxiety, Depression Other Psychiatric History: drug seeking behaviors Hematologic History: Reports: Other (See Below) Other Hematologic History: superficial blood clot 2013 - Infectious Disease History Infectious Disease History: Reports: Chicken Pox - Past Surgical History HEENT Surgical History: Reports: Oral Surgery, Other (See Below) Other HEENT Surgeries/Procedures: [place] teeth GI Surgical History: Reports: Other (See Below) Other GI Surgeries/Procedures: Exploratoy laproscopic Female Surgical History: Reports: D&C, Hysterectomy Other Female Surgeries/Procedures: Still has right ovary. Other Neurological Surgeries/Procedures: Had occipital block on Dec 13 Musculoskeletal Surgical History: Reports: Arthroscopic Knee, ORIF Other Musculoskeletal Surgeries/Procedures:: knee left scoped at 11 years of age Dermatological Surgical History: Reports: Plastic Surgical Reconstruction/Repair Social & Family History - Family History Family Medical History: No Pertinent Family History - Tobacco Use Tobacco Use Status *Q: Current Every Day Tobacco User Years of Tobacco use: 12 Packs/Tins Daily: 0.5 - Caffeine Use Caffeine Use: Reports: Soda, Tea - Recreational Drug Use Recreational Drug Use: Yes Drug Use in Last 12 Months: No Recreational Drug Type: Reports: Marijuana/Hashish Recreational Drug Use Frequency: Socially - Living Situation & Occupation Living situation: Reports: (), with Spouse, with Family (1 child) Occupation: Employed ([employer] @ [employer]) Review of Systems - Review of Systems Review Of Systems: Comprehensive ROS is negative, except as noted in HPI. ED EXAM, GENERAL - Physical Exam Exam: See Below Exam Limited By: No Limitations General Appearance: Alert, WD/WN, No Apparent Distress Respiratory/Chest: No Respiratory Distress, Lungs Clear, Normal Breath Sounds, No Accessory Muscle Use, Chest Non-Tender Cardiovascular: Normal Peripheral Pulses, Regular Rate, Rhythm, No Murmur Peripheral Pulses: 2+: Radial (L), Radial (R) Extremities: Normal Capillary Refill, Increased Warmth (to Right upper arm), Redness (to Right upper arm) Neurological: Alert, Oriented, Normal Cognition, No Motor/Sensory Deficits Psychiatric: Normal Affect, Normal Mood Skin Exam: Warm, Dry, Intact, No Rash, Erythema (to right upper arm), Increased Warmth (to right upper arm), Other (there is a lesion that is roughly prune sized, this is not fluctuant but is tender, erythematous and slight swelling.) Course - Vital Signs Last Recorded V/S: Last Vital Signs Temp 98.4 F 10/04/20 15:21 Pulse 79 10/04/20 15:21 Resp 18 10/04/20 15:21 BP 130/87 10/04/20 15:21 Pulse Ox 98 10/04/20 15:21 - Orders/Labs/Meds Orders: Active Orders 24 hr Category Date Time Status Notify Provider Consults [RC] ASDIRECTED Care 10/04/20 16:45 Active Consult to Physician [CONS] Stat Cons 10/04/20 16:43 Active Labs: Laboratory Tests 10/04/20 10/04/20 Range/Units 17:00 17:00 WBC 14.00 H (3.98-10.04) K/mm3 RBC 4.56 (3.98-5.22) M/mm3 Hgb 12.9 (11.2-15.7) gm/dl Hct 39.8 (34.1-44.9) % MCV 87.3 D (79.4-94.8) fl MCH 28.3 (25.6-32.2) pg MCHC 32.4 (32.2-35.5) g/dl RDW Std Deviation 39.8 (36.4-46.3) fL Plt Count 409 H (182-369) K/mm3 MPV 8.4 L (9.4-12.3) fl Neut % (Auto) 71.0 (34.0-71.1) % Lymph % (Auto) 18.6 L (19.3-51.7) % [place] % (Auto) 9.0 (4.7-12.5) % Eos % (Auto) 0.9 (0.7-5.8) Baso % (Auto) 0.1 (0.1-1.2) % Neut # (Auto) 9.94 H (1.56-6.13) K/mm3 Lymph # (Auto) 2.60 (1.18-3.74) K/mm3 [place] # (Auto) 1.26 H (0.24-0.36) K/mm3 Eos # (Auto) 0.12 (0.04-0.36) K/mm3 Baso # (Auto) 0.02 (0.01-0.08) K/mm3 Sodium 139 (136-145) mEq/L Potassium 4.5 (3.5-5.1) mEq/L Chloride 101 (98-107) mEq/L Carbon Dioxide 27 (21-32) mEq/L Anion Gap 15.5 H (5-15) BUN 8 (7-18) mg/dL Creatinine 0.7 (0.55-1.02) mg/dL Est Cr Clr Drug Dosing 120.58 mL/min Estimated GFR (MDRD) > 60 (>60) mL/min BUN/Creatinine Ratio 11.4 L (14-18) Glucose 99 (74-106) mg/dL Calcium 8.9 (8.5-10.1) mg/dL Total Bilirubin 0.4 (0.2-1.0) mg/dL AST 29 (15-37) U/L ALT 28 (14-59) U/L Alkaline Phosphatase 101 (46-116) U/L C-Reactive Protein 4.0 H* (<1.0) mg/dL Total Protein 8.6 H (6.4-8.2) g/dl Albumin 3.5 (3.4-5.0) g/dl Globulin 5.1 gm/dL Albumin/Globulin Ratio 0.7 L (1-2) Meds: Medications Discontinued Medications Generic Name Dose Route Start Last Admin Trade Name Freq PRN Reason Stop Dose Admin Hydromorphone HCl 1 mg 10/04/20 18:15 Dilaudid IM 10/04/20 18:16 ONETIME ONE Lidocaine/Epinephrine 20 ml 10/04/20 17:36 10/04/20 17:48 Xylocaine 1% With Epinephrine 1:100,000 INJECT 10/04/20 17:37 20 ml ONETIME ONE Administration - Re-Assessments/Exams Free Text/Narrative Re-Assessment/Exam: 10/04/20 15:52 Patient presents to the ED for evaluation of her right upper inner arm lesion. This is prune sized, and I do believe would benefit from incision and drainage. I did discuss the results of the patient's ultrasound with Dr. Wall, and she now believes it might be an infected hematoma. She does suggest calling Dr. Magaña for I&D. 10/04/20 18:16 Dr. Magaña was able to I&D the area and the patient will be sent home with a continuation of Doxycycline for 10 days and a few more pain meds. Departure - Departure Time of Disposition: 18:17 Disposition: Home, Self-Care 01 Condition: Good Clinical Impression: Cellulitis and abscess of upper extremity - Discharge Information *PRESCRIPTION DRUG MONITORING PROGRAM REVIEWED*: Yes *COPY OF PRESCRIPTION DRUG MONITORING REPORT IN PATIENT CHANTAL: No Instructions: Skin Abscess, [id number] Referrals: Rena Sheikh PA-C [Primary Care Provider] - Forms: ED Department Discharge Additional Instructions: You were evaluated in the ER today regarding a suspected skin infection/abscess. It does appear that you had an abscess. You did have this area incised and drained. It was packed with gauze to allow it to continue to drain further. If you cannot change the gauze by yourself tomorrow; please call the [facility] at [phone] to have a nurse with with Dr. Magaña's nurse for dressing change. You were given an antibiotic, doxycycline 100mg x 10 days. You may try to use heat/ice packs to the area to help reduce pain/swelling. You may take 500 mg Tylenol or 600 mg ibuprofen every 6 hours as needed for fur ther pain relief. Do not exceed 4000 mg Tylenol or 3200 mg ibuprofen in a 24- hour time span. You were given a prescription for a strong pain medication, hydrocodone/acetaminophen 5/325mg, please take 1 tab every 6 hours as needed for pain not relieved by Tylenol or ibuprofen alone. Please note this medication does contain Tylenol in it, so do not take more than 4000 mg in a 24-hour time span. These medications can be addictive, so please take as few as possible to achieve adequate pain control. These meds can also be quite constipating, recommend that you increase your oral fluid intake and take a stool softener like MiraLAX while taking these medications. Do not drive while taking this medication. Please return to the ER at any time if your symptoms change or worsen. Sepsis Event Note (ED) - Evaluation Sepsis Screening Result: No Definite Risk - Focused Exam Vital Signs: Vital Signs Temp Pulse Resp BP Pulse Ox 10/04/20 15:21 98.4 F 79 18 130/87 98 - My Orders Last 24 Hours: My Active Orders 10/04/20 16:43 Consult to Physician [CONS] Stat 10/04/20 16:45 Notify Provider Consults [RC] ASDIRECTED - Assessment/Plan Last 24 Hours: My Active Orders 10/04/20 16:43 Consult to Physician [CONS] Stat 10/04/20 16:45 Notify Provider Consults [RC] ASDIRECTED
[2020-10-04] MEDS ORDERED: Lidocaine 1% with EPINEPHrine 1:100,000 20 ML MDV INJECT ONE (17:36)
[2020-10-04] MEDS ORDERED: HYDROmorphone 1 MG/ML Syringe IM ONE (18:15)
--- NOTE | 2020-10-04 18:58 | PCM.CONS ---
H&P History of Present Illness - General Date of Service: 10/04/20 Source of Information: Patient History Limitations: Reports: No Limitations - History of Present Illness Initial Comments - Free Text/Narative: Patient developed right medial upper arm swelling 10 days ago. this got progressively worse over time and started to be red and warm to touch. She was seen in clinic and US was performed and showed a subcutaneous fluid collection concerning for a hematoma or abscess. Pt denies any trauma to the area. Had prior hx of heroine use but denies any injections recently. She presented to the ED due to persistent pain and low grade fever to 100.4. I was asked to evaluate the patient. Onset of Symptoms: Reports: Gradual Duration of Symptoms: Reports: Day(s): (10) Location: Reports: Upper Extremity, Right Quality: Reports: Ache, Pressure Severity: Severe Improves with: Reports: Immobilization Worsens with: Reports: Other (pressure), Movement Associated Symptoms: Reports: Fever/Chills Right Arm Pain Score (Numeric/FACES): 8 - Related Data Allergies/Adverse Reactions: Allergies Allergy/AdvReac Type Severity Reaction Status Date / Time gentamicin [Gentamicin] Allergy Severe Redness Verified 10/04/20 15:12 morphine Allergy Severe Hives Verified 10/04/20 15:12 buspirone HCl [From BuSpar] AdvReac Severe Confusion Verified 10/04/20 15:12 prednisone AdvReac Severe Tachycardia Verified 10/04/20 15:12 sertraline AdvReac Severe Tachycardia Verified 10/04/20 15:12 Home Medications: Home Meds SUMAtriptan [Imitrex Pen Injector Kit] 6 mg SQ ASDIRECTED PRN 02/01/14 [History] Ketorolac [Toradol] 60 mg IM Q6H PRN 02/17/16 [History] Amitriptyline [Elavil] 150 mg PO BEDTIME 03/14/16 [History] DULoxetine [Cymbalta] 60 mg PO DAILY 08/08/16 [History] Aspirin/Acetaminophen/Caffeine [Excedrin Migraine Caplet] 2 tab PO Q6H PRN 02/26/20 [History] Magnesium Oxide [Magnesium] 400 mg PO DAILY 08/22/20 [History] ALPRAZolam [Xanax] 0.5 mg PO QID PRN 09/27/20 [History] Ascorbic Acid [Vitamin C] 1,000 mg PO DAILY 09/27/20 [History] Hydrocodone/Acetaminophen [Hydrocodone-Acetamin 5-325 mg] 1 - 2 each PO Q6HR PRN #20 tablet 09/27/20 [Rx] Ondansetron [Zofran ODT] 4 mg PO Q6H PRN 09/27/20 [History] Doxycycline [Doxycycline Monohydrate] 100 mg PO BID 10/04/20 [History] Doxycycline [Vibramycin] 100 mg PO BID 10 Days #20 tab 10/04/20 [Rx] Hydrocodone/Acetaminophen [Hydrocodone-Acetamin 5-325 mg] 1 each PO Q6H PRN #12 tablet 10/04/20 [Rx] Silver Sulfadiazine [Silvadene 1% Cream 25 GM] 1 TOP BID 10/04/20 [History] atenoloL [Atenolol] 50 mg PO BID 10/04/20 [History] Past Medical History - Past Health History Medical/Surgical History: Denies Medical/Surgical History HEENT History: Reports: Other (See Below) Other HEENT History: oral surgery- 2 teeth extracted on left upper and lower Cardiovascular History: Reports: Hypertension, Other (See Below) Other Cardiovascular History: takes atenolol for history of tachycardia and migraines Respiratory History: Reports: None Gastrointestinal History: Reports: GERD Genitourinary History: Reports: Renal Calculus [employer] MA[employer] History: Reports: Fibroids Other OB/BYN History: exploratory laproscopy on 05-15-2016 Musculoskeletal History: Reports: Arthritis, Fracture Other Musculoskeletal History: Right radial fracture Neurological History: Reports: Migraines, Seizure Other Neuro History: has been on botox injection about 1 year now Psychiatric History: Reports: Addiction, Anxiety, Depression Other Psychiatric History: drug seeking behaviors Endocrine/Metabolic History: Reports: None Hematologic History: Reports: Other (See Below) Other Hematologic History: superficial blood clot 2013 Immunologic History: Reports: None Oncologic (Cancer) History: Reports: None - Infectious Disease History Infectious Disease History: Reports: Chicken Pox - Past Surgical History HEENT Surgical History: Reports: Oral Surgery, Other (See Below) Other HEENT Surgeries/Procedures: [place] teeth GI Surgical History: Reports: Other (See Below) Other GI Surgeries/Procedures: Exploratoy laproscopic Female Surgical History: Reports: D&C, Hysterectomy Other Female Surgeries/Procedures: Still has right ovary. Other Neurological Surgeries/Procedures: Had occipital block on Dec 13 Musculoskeletal Surgical History: Reports: Arthroscopic Knee, ORIF Other Musculoskeletal Surgeries/Procedures:: knee left scoped at 11 years of age Dermatological Surgical History: Reports: Plastic Surgical Reconstruction/Repair Social & Family History - Family History Family Medical History: No Pertinent Family History - Tobacco Use Tobacco Use Status *Q: Current Every Day Tobacco User Years of Tobacco use: 12 Packs/Tins Daily: 0.5 - Caffeine Use Caffeine Use: Reports: Soda, Tea - Recreational Drug Use Recreational Drug Use: Yes Drug Use in Last 12 Months: No Recreational Drug Type: Reports: Marijuana/Hashish Recreational Drug Use Frequency: Socially - Living Situation & Occupation Living situation: Reports: (), with Spouse, with Family (1 child) Occupation: Employed ([email or web address] @ [employer]) H&P Review of Systems - Review of Systems: Review Of Systems: See Below General: Reports: Fever, Chills, Night Sweats HEENT: Reports: No Symptoms Pulmonary: Reports: No Symptoms Cardiovascular: Reports: No Symptoms Gastrointestinal: Reports: No Symptoms Genitourinary: Reports: No Symptoms Musculoskeletal: Reports: Arm Pain (RUE) Skin: Reports: Erythema (rue) Exam - Exam Exam: See Below - Vital Signs Vital Signs: Last Vital Signs Temp 98.4 F 10/04/20 15:21 Pulse 79 10/04/20 15:21 Resp 18 10/04/20 15:21 BP 130/87 10/04/20 15:21 Pulse Ox 98 10/04/20 15:21 Weight: 76.657 kg - Exam General: Alert, Oriented, Cooperative Lungs: Clear to Auscultation, Normal Respiratory Effort Cardiovascular: Regular Rate, Regular Rhythm, Normal S1, Normal S2 Extremities: Other (RUE there is a 8 cm indurated and erythematouch area on the medial aspect, 5 cm inferior to the right axilla. warm to touch, tender and fluctuant) - Patient Data Lab Results Last 24 hrs: Laboratory Results - last 24 hr 10/04/20 10/04/20 Range/Units 17:00 17:00 WBC 14.00 H (3.98-10.04) K/mm3 RBC 4.56 (3.98-5.22) M/mm3 Hgb 12.9 (11.2-15.7) gm/dl Hct 39.8 (34.1-44.9) % MCV 87.3 D (79.4-94.8) fl MCH 28.3 (25.6-32.2) pg MCHC 32.4 (32.2-35.5) g/dl RDW Std Deviation 39.8 (36.4-46.3) fL Plt Count 409 H (182-369) K/mm3 MPV 8.4 L (9.4-12.3) fl Neut % (Auto) 71.0 (34.0-71.1) % Lymph % (Auto) 18.6 L (19.3-51.7) % [place] % (Auto) 9.0 (4.7-12.5) % Eos % (Auto) 0.9 (0.7-5.8) Baso % (Auto) 0.1 (0.1-1.2) % Neut # (Auto) 9.94 H (1.56-6.13) K/mm3 Lymph # (Auto) 2.60 (1.18-3.74) K/mm3 [place] # (Auto) 1.26 H (0.24-0.36) K/mm3 Eos # (Auto) 0.12 (0.04-0.36) K/mm3 Baso # (Auto) 0.02 (0.01-0.08) K/mm3 Sodium 139 (136-145) mEq/L Potassium 4.5 (3.5-5.1) mEq/L Chloride 101 (98-107) mEq/L Carbon Dioxide 27 (21-32) mEq/L Anion Gap 15.5 H (5-15) BUN 8 (7-18) mg/dL Creatinine 0.7 (0.55-1.02) mg/dL Est Cr Clr Drug Dosing 120.58 mL/min Estimated GFR (MDRD) > 60 (>60) mL/min BUN/Creatinine Ratio 11.4 L (14-18) Glucose 99 (74-106) mg/dL Calcium 8.9 (8.5-10.1) mg/dL Total Bilirubin 0.4 (0.2-1.0) mg/dL AST 29 (15-37) U/L ALT 28 (14-59) U/L Alkaline Phosphatase 101 (46-116) U/L C-Reactive Protein 4.0 H* (<1.0) mg/dL Total Protein 8.6 H (6.4-8.2) g/dl Albumin 3.5 (3.4-5.0) g/dl Globulin 5.1 gm/dL Albumin/Globulin Ratio 0.7 L (1-2) Result Diagrams: 10/04/20 17:00 10/04/20 17:00 Sepsis Event Note - Evaluation Sepsis Screening Result: No Definite Risk - Focused Exam Vital Signs: Vital Signs Temp Pulse Resp BP Pulse Ox 10/04/20 15:21 98.4 F 79 18 130/87 98 Consult PN Assessment/Plan Procedures: Procedures APPLY FOREARM SPLINT (05/08/19) ASSAY CARBAMAZEPINE TOTAL (02/04/16) ASSAY OF AMYLASE (08/18/14) ASSAY OF LACTIC ACID (08/22/20) ASSAY OF LIPASE (09/29/17) BL SMEAR W/DIFF WBC COUNT (03/16/19) BLOOD CULTURE FOR BACTERIA (08/22/20) C-REACTIVE PROTEIN (08/22/20) CHEST X-RAY 2VW FRONTAL&LATL (06/27/14) CHORIONIC GONADOTROPIN ASSAY (03/12/16) COLONOSCOPY AND BIOPSY (08/11/16) COMPLETE CBC AUTOMATED (03/16/19) COMPLETE CBC W/AUTO DIFF WBC (08/22/20) COMPREHEN METABOLIC PANEL (08/22/20) CT ABD & PELVIS W/O CONTRAST (01/23/17) CT HEAD/BRAIN W/O DYE (04/07/18) CULTURE AEROBIC IDENTIFY (08/22/20) CULTURE OTHR SPECIMN AEROBIC (08/22/20) DRAINAGE OF SKIN ABSCESS (08/22/20) EEG AWAKE AND ASLEEP (10/01/15) ELECTROCARDIOGRAM TRACING (09/16/15) EMERGENCY DEPT VISIT (09/27/20) EMERGENCY DEPT VISIT (12/13/19) EMERGENCY DEPT VISIT (10/12/19) EMERGENCY DEPT VISIT (09/16/18) EMERGENCY DEPT VISIT (05/19/16) EMERGENCY DEPT VISIT (04/16/16) EMERGENCY DEPT VISIT (03/14/16) EMERGENCY DEPT VISIT (03/12/16) EMERGENCY DEPT VISIT (02/13/16) EMERGENCY DEPT VISIT (02/03/16) EMERGENCY DEPT VISIT (02/03/16) EMERGENCY DEPT VISIT (02/01/16) EMERGENCY DEPT VISIT (01/27/16) EMERGENCY DEPT VISIT (01/23/16) EMERGENCY DEPT VISIT (01/17/16) EMERGENCY DEPT VISIT (01/13/16) EMERGENCY DEPT VISIT (01/05/16) EMERGENCY DEPT VISIT (01/03/16) EMERGENCY DEPT VISIT (10/29/15) EMERGENCY DEPT VISIT (10/21/15) EMERGENCY DEPT VISIT (09/16/15) EMERGENCY DEPT VISIT (09/09/15) EMERGENCY DEPT VISIT (08/26/15) EMERGENCY DEPT VISIT (08/21/15) EMERGENCY DEPT VISIT (05/03/15) EMERGENCY DEPT VISIT (04/24/15) EMERGENCY DEPT VISIT (03/26/15) EMERGENCY DEPT VISIT (03/18/15) EMERGENCY DEPT VISIT (01/20/15) EMERGENCY DEPT VISIT (12/31/14) EMERGENCY DEPT VISIT (12/22/14) EMERGENCY DEPT VISIT (08/18/14) EMERGENCY DEPT VISIT (08/16/14) EMERGENCY DEPT VISIT (07/20/14) HYDRATE IV INFUSION ADD-ON (09/29/17) IIV4 VACC NO PRSV 0.5 ML IM (08/22/20) IMMUNIZATION ADMIN (08/22/20) METABOLIC PANEL TOTAL CA (02/15/18) MICROBE SUSCEPTIBLE GRADY (08/22/20) MRI BRAIN STEM W/O & W/DYE (01/23/16) MRI LUMBAR SPINE W/O DYE (07/01/18) MRI NECK SPINE W/O DYE (01/23/16) ROUTINE VENIPUNCTURE (08/22/20) RPR F/E/E/N/L/M 2.5 CM/< (12/13/19) TEST FOR ACETONE/KETONES (09/29/17) THER/PROPH/DIAG INJ IV PUSH (09/29/17) THER/PROPH/DIAG INJ SC/IM (02/26/20) THER/PROPH/DIAG IV INF INIT (08/22/20) TRANSVAGINAL US NON-OB (04/16/16) TX/PRO/DX INJ NEW DRUG ADDON (09/29/17) TX/PRO/DX INJ SAME DRUG TOBACCO FARMWORKER (01/23/17) URINALYSIS AUTO W/SCOPE (02/16/17) URINE CULTURE/COLONY COUNT (05/19/16) URINE TEST (08/11/16) US EXAM PELVIC COMPLETE (01/30/16) X-RAY EXAM HIP UNI 2-3 VIEWS (10/01/19) X-RAY EXAM NECK SPINE 2-3 VW (10/29/16) X-RAY EXAM OF ABDOMEN (02/16/17) X-RAY EXAM OF FINGER(S) (05/08/19) X-RAY EXAM OF FOOT (10/12/19) X-RAY EXAM OF WRIST (05/08/19) Problem List Initiated/Reviewed/Updated: No Plan: RUE absces. I&D performed at bedside. Cultures sent. packing placed. - continue daily packing at home. If the patient cannot pack at home then she can come to my clinic for packing. Will resume 10 days of antibiotics. Follow up in 1 week.
--- NOTE | 2020-10-04 19:38 | PROC ---
DATE OF OPERATION: 10/04/2020 SURGEON: Candace Magaña MD PREOPERATIVE DIAGNOSIS: right upper extremity abscess. POSTOPERATIVE DIAGNOSIS: right upper extremity abscess. PROCEDURE: Incision and drainage of right upper extremity abscess. FINDINGS: 6 cm abscess in the right upper extremity. INDICATION AND CONSENT: The patient is a 30-year-old female with a history of IV drug use, who presented to ED with 10 days of swelling in the inner aspect of the right upper extremity about 5 cm distal to the axilla. The patient had been evaluated in clinic by the care provider and the ultrasound did show a 4.3 cm fluid collection with overlying inflammatory change. She had been treated with antibiotics for the past 10 days. However, the erythema, the fluid collection, and pain kept getting worse. Therefore, she came to the ED and I was asked to come and evaluate the patient. The patient confirmed the abscess in the right upper extremity. I recommended we proceed with the incision and drainage. We discussed risks, benefits, and alternatives including bleeding, infection, injury to adjacent structures. The patient agreed with the procedure. Informed consent was obtained. DETAILS OF PROCEDURE: The patient was prepared at bedside. The area was isolated, prepped and draped in the usual sterile fashion. Then, we performed time-out. About 20 mL of 1% lidocaine with epinephrine were injected to the skin and deeper tissues. An #11 blade was used to make an incision. Immediate expression of thick purulent material was encountered. There was copious amount of thick purulent material in the direct space. Swabs were taken for cultures. The wound was minimally explored with Q-Tips due to extreme pain by the patient. However, the wound was squeezed to make sure the entirety of the purulent material was drained and the wound was flushed with normal saline until all the pus was clear. Once that was done, then we packed the wound with quarter inch antibiotic soaked iodoform gauze and wrapped the wound with Coban after placing sterile dressings on top of the wound. This was the end of the procedure. EBL was minimal. All instruments were disposed off appropriately. The patient will be allowed to return home. I will extend the patient's antibiotics for additional 10 days due to the extent of the erythema and abscess. The patient will continue to pack the wound daily to ensure proper drainage and healing of the wound. MMODAL /[id number] RAY
== END 2020-10-04 18:34 | disposition home or self-care (01) ==
LOC: JD.ED 14:45
DX: L03.113 Cellulitis of right upper limb (principal); L02.413 Cutaneous abscess of right upper limb; I10 Essential (primary) hypertension; F41.9 Anxiety disorder, unspecified; F32.9 Major depressive disorder, single episode, unspecified; F17.210 Nicotine dependence, cigarettes, uncomplicated; Z79.82 Long term (current) use of aspirin; Z88.1 Allergy status to other antibiotic agents; Z88.5 Allergy status to narcotic agent
CPT/HCPCS: 10060; 36415; 80053; 85025; 86140; 87070; 96372; 99283; J1170; 87077; 87181; 87184; 99284

== ENCOUNTER 2020-11-27 08:59 | Emergency (ER) | payer OTHER ==
[2020-11-27 09:19] VITALS: BP 113/85; PULSE 113
--- NOTE | 2020-11-27 09:36 | EDM.PDOC ---
ED HPI GENERAL MEDICAL PROBLEM - General Chief Complaint: Upper Extremity Injury/Pain Stated Complaint: R ELBOW INJURY Time Seen by Provider: 11/27/20 09:10 Source of Information: Reports: Patient History Limitations: Reports: No Limitations - History of Present Illness INITIAL COMMENTS - FREE TEXT/NARRATIVE: The patient presents with right elbow and right hip pain. She said she was going into work at the [employer] home and she slipped on some ice and fell and landed on her right elbow and hip. She did not hit her head or hurt her neck. She has no headache, neck pain, chest pain or abdominal pain. Onset: Sudden Duration: Hour(s): Location: Reports: Upper Extremity, Right (elbow), Lower Extremity, Right (hip) Quality: Reports: Sharp Severity: Moderate Improves with: Reports: Immobilization Worsens with: Reports: Movement Context: Reports: Trauma (slipped and fell on the ice) Associated Symptoms: Reports: No Other Symptoms Treatments CENSUS TAKER: Reports: Acetaminophen, NSAIDS Right Elbow Pain Score (Numeric/FACES): 7 - Related Data Allergies Allergy/AdvReac Type Severity Reaction Status Date / Time gentamicin [Gentamicin] Allergy Severe Redness Verified 11/27/20 09:10 morphine Allergy Severe Hives Verified 11/27/20 09:10 buspirone HCl [From BuSpar] AdvReac Severe Confusion Verified 11/27/20 09:10 prednisone AdvReac Severe Tachycardia Verified 11/27/20 09:10 sertraline AdvReac Severe Tachycardia Verified 11/27/20 09:10 Home Meds: Home Meds SUMAtriptan [Imitrex Pen Injector Kit] 6 mg SQ ASDIRECTED PRN 02/01/14 [History] Ketorolac [Toradol] 60 mg IM Q6H PRN 02/17/16 [History] Amitriptyline [Elavil] 150 mg PO BEDTIME 03/14/16 [History] DULoxetine [Cymbalta] 60 mg PO DAILY 08/08/16 [History] Aspirin/Acetaminophen/Caffeine [Excedrin Migraine Caplet] 2 tab PO Q6H PRN 02/26/20 [History] Magnesium Oxide [Magnesium] 400 mg PO DAILY 08/22/20 [History] Ascorbic Acid [Vitamin C] 1,000 mg PO DAILY 09/27/20 [History] Ondansetron [Zofran ODT] 4 mg PO Q6H PRN 09/27/20 [History] atenoloL [Atenolol] 50 mg PO BID 10/04/20 [History] Venlafaxine [Effexor] 1 tab PO DAILY 11/27/20 [History] hydrALAZINE [Apresoline] 25 mg PO ASDIRECTED 11/27/20 [History] Past Medical History - Past Health History Medical/Surgical History: Denies Medical/Surgical History HEENT History: Reports: Other (See Below) Other HEENT History: oral surgery- 2 teeth extracted on left upper and lower Cardiovascular History: Reports: Hypertension, Other (See Below) Other Cardiovascular History: takes atenolol for history of tachycardia and migraines Respiratory History: Reports: None Gastrointestinal History: Reports: GERD Genitourinary History: Reports: Renal Calculus 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: Reports: Fibroids Other 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: exploratory laproscopy on 05-15-2016 Musculoskeletal History: Reports: Arthritis, Fracture Other Musculoskeletal History: Right radial fracture Neurological History: Reports: Migraines, Seizure Other Neuro History: has been on botox injection about 1 year now Psychiatric History: Reports: Addiction, Anxiety, Depression Other Psychiatric History: drug seeking behaviors Endocrine/Metabolic History: Reports: None Hematologic History: Reports: Other (See Below) Other Hematologic History: superficial blood clot 2013 Immunologic History: Reports: None Oncologic (Cancer) History: Reports: None - Infectious Disease History Infectious Disease History: Reports: Chicken Pox - Past Surgical History HEENT Surgical History: Reports: Oral Surgery, Other (See Below) Other HEENT Surgeries/Procedures: [place] teeth GI Surgical History: Reports: Other (See Below) Other GI Surgeries/Procedures: Exploratoy laproscopic Female Surgical History: Reports: D&C, Hysterectomy Other Female Surgeries/Procedures: Still has right ovary. Other Neurological Surgeries/Procedures: Had occipital block on Dec 13 Musculoskeletal Surgical History: Reports: Arthroscopic Knee, ORIF Other Musculoskeletal Surgeries/Procedures:: knee left scoped at 11 years of age Dermatological Surgical History: Reports: Plastic Surgical Reconstruction/Repair Social & Family History - Family History Family Medical History: No Pertinent Family History - Tobacco Use Tobacco Use Status *Q: Current Every Day Tobacco User Years of Tobacco use: 17 Packs/Tins Daily: 0.5 - Caffeine Use Caffeine Use: Reports: Soda, Tea - Recreational Drug Use Recreational Drug Use: Yes Drug Use in Last 12 Months: No Recreational Drug Type: Reports: Marijuana/Hashish, Methamphetamine Recreational Drug Use Frequency: Socially - Living Situation & Occupation Living situation: Reports: (), with Spouse, with Family (1 ana maria rangel) Occupation: Employed ([employer] @ [employer]) Review of Systems - Review of Systems Review Of Systems: See Below Constitutional: Reports: No Symptoms Eyes: Reports: No Symptoms Ears: Reports: No Symptoms Nose: Reports: No Symptoms Mouth/Throat: Reports: No Symptoms Respiratory: Reports: No Symptoms Cardiovascular: Reports: No Symptoms GI/Abdominal: Reports: No Symptoms Genitourinary: Reports: No Symptoms Musculoskeletal: Reports: Other (right elbow and right hip pain) ED EXAM, GENERAL - Physical Exam Exam: See Below Exam Limited By: No Limitations General Appearance: Alert, No Apparent Distress Ears: Normal External Exam Nose: Normal Inspection Head: Atraumatic, Normocephalic Neck: Normal Inspection Respiratory/Chest: No Respiratory Distress, Lungs Clear, Normal Breath Sounds Cardiovascular: Regular Rate, Rhythm, No Edema, No Murmur GI/Abdominal: Soft, Non-Tender, No Organomegaly, No Mass Extremities: Other (Pain upon palpation to the right elbow and pain upon palpation to the right hip without ecchymosis) Course - Vital Signs Last Recorded V/S: Last Vital Signs Temp 97.8 F 11/27/20 09:18 Pulse 113 H 11/27/20 09:18 Resp 18 11/27/20 09:18 BP 113/85 11/27/20 09:18 Pulse Ox 100 11/27/20 09:18 - Orders/Labs/Meds Orders: Active Orders 24 hr Category Date Time Status Elbow Min 3V Rt [CR] Stat Exams 11/27/20 09:31 Taken Hip Min 2V or 3V w Pelvis Rt [CR] Stat Exams 11/27/20 09:31 Taken - Re-Assessments/Exams Free Text/Narrative Re-Assessment/Exam: 11/27/20 09:36 I ordered an x-ray of her right elbow and right hip with pelvis. 11/27/20 10:06 The x-ray of her elbow and hip look good. I will be able to return her to work tomorrow. Departure - Departure Time of Disposition: 10:10 Disposition: Home, Self-Care 01 Condition: Good Clinical Impression: Fall Qualifiers: Encounter type: initial encounter Qualified Code(s): W19.XXXA - Unspecified fall, initial encounter Contusion of right elbow Qualifiers: Encounter type: initial encounter Qualified Code(s): S50.01XA - Contusion of right elbow, initial encounter Contusion of right hip Qualifiers: Encounter type: initial encounter Qualified Code(s): S70.01XA - Contusion of right hip, initial encounter - Discharge Information *PRESCRIPTION DRUG MONITORING PROGRAM REVIEWED*: Not Applicable *COPY OF PRESCRIPTION DRUG MONITORING REPORT IN PATIENT CHANTAL: Not Applicable Referrals: Rena Sheikh PA-C [Primary Care Provider] - Forms: ED Department Discharge, ED Return to Work/School Form Additional Instructions: Ice your elbow and hip for 15 minutes 3 times per day for 2 days. Take tylenol or motrin for pain. Please return if you are worse. Sepsis Event Note (ED) - Evaluation Sepsis Screening Result: No Definite Risk - Focused Exam Vital Signs: Vital Signs Temp Pulse Resp BP Pulse Ox 11/27/20 09:18 97.8 F 113 H 18 113/85 100 - My Orders Last 24 Hours: My Active Orders 11/27/20 09:31 Elbow Min 3V Rt [CR] Stat Hip Min 2V or 3V w Pelvis Rt [CR] Stat - Assessment/Plan Last 24 Hours: My Active Orders 11/27/20 09:31 Elbow Min 3V Rt [CR] Stat Hip Min 2V or 3V w Pelvis Rt [CR] Stat
--- NOTE | 2020-11-27 10:09 | CR ---
Pelvis and right hip: AP view of the pelvis was obtained as well as frog leg lateral view of the right hip. Comparison: Prior AP pelvis study of 10/01/19. 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 Joint spaces within both hips are maintained. No discrete fracture or other bony abnormality is appreciated. Impression: 1. Osteitis condensans ilii. 2. Nothing acute is seen on AP pelvis or frog leg lateral view of the right hip. Diagnostic code #2
--- NOTE | 2020-11-27 10:09 | CR ---
Right elbow: 4 views of the right elbow were obtained. Comparison: No prior elbow study is available. No joint effusion is appreciated. Joint spaces are preserved. Mild soft tissue swelling is noted. No acute fracture, dislocation or other bony abnormality is appreciated. Impression: 1. Soft tissue swelling. 2. No acute osseous abnormality is appreciated. Diagnostic code #2
== END 2020-11-27 10:14 | disposition home or self-care (01) ==
LOC: JD.ED 08:59
DX: S70.01XA Contusion of right hip, initial encounter (principal); S50.01XA Contusion of right elbow, initial encounter; I10 Essential (primary) hypertension; Z79.82 Long term (current) use of aspirin; Z79.899 Other long term (current) drug therapy; Z88.1 Allergy status to other antibiotic agents; Z88.5 Allergy status to narcotic agent; Z88.8 Allergy status to other drugs, medicaments and biological substances; Z72.0 Tobacco use; W00.0XXA Fall on same level due to ice and snow, initial encounter
CPT/HCPCS: 73080-26-RT; 73080-RT; 73502-26-RT; 73502-RT; 99283; 99283-25

== ENCOUNTER 2021-02-24 15:14 | Emergency (ER) | payer BC, OTHER ==
[2021-02-24] MEDS ORDERED: Sodium Chloride 0.9% 10 ML Syringe FLUSH PRN (15:38)
--- NOTE | 2021-02-24 15:53 | EDM.PDOCBH ---
ED HPI GENERAL MEDICAL PROBLEM - General Chief Complaint: Behavioral/Psych Stated Complaint: MENTAL EVALUATION Time Seen by Provider: 02/24/21 15:19 Source of Information: Reports: Patient, Police History Limitations: Reports: No Limitations - History of Present Illness INITIAL COMMENTS - FREE TEXT/NARRATIVE: The patient presents with [facility] for possible overdose. The police showed me a text the patient did to her brother and she said she was going to take 89 xanax. The officer's said she was drowsy when they talked with her. The patient denies making the text and says she does not want to kill herself or hurt herself. She has been a little stressed lately with work and dealing with her ex . She denies drinking alcohol. She was going to her daughter's volleyball game. She has no fever, chills, cough, chest pain, shortness of breath, abdominal pain, nausea or vomiting. The patient is well known to the ER. She has been seen here multiple times. Onset: Gradual Severity: Moderate Improves with: Reports: None Worsens with: Reports: None Associated Symptoms: Reports: No Other Symptoms - Related Data Allergies Allergy/AdvReac Type Severity Reaction Status Date / Time gentamicin [Gentamicin] Allergy Severe Redness Verified 11/27/20 09:10 morphine Allergy Severe Hives Verified 11/27/20 09:10 buspirone HCl [From BuSpar] AdvReac Severe Confusion Verified 11/27/20 09:10 prednisone AdvReac Severe Tachycardia Verified 11/27/20 09:10 sertraline AdvReac Severe Tachycardia Verified 11/27/20 09:10 Home Meds: Home Meds SUMAtriptan [Imitrex Pen Injector Kit] 6 mg SQ ASDIRECTED PRN 02/01/14 [History] Ketorolac [Toradol] 60 mg IM Q6H PRN 02/17/16 [History] Amitriptyline [Elavil] 150 mg PO BEDTIME 03/14/16 [History] DULoxetine [Cymbalta] 60 mg PO DAILY 08/08/16 [History] Aspirin/Acetaminophen/Caffeine [Excedrin Migraine Caplet] 2 tab PO Q6H PRN 02/26/20 [History] Magnesium Oxide [Magnesium] 400 mg PO DAILY 08/22/20 [History] Ascorbic Acid [Vitamin C] 1,000 mg PO DAILY 09/27/20 [History] Ondansetron [Zofran ODT] 4 mg PO Q6H PRN 09/27/20 [History] atenoloL [Atenolol] 50 mg PO BID 10/04/20 [History] Venlafaxine [Effexor] 1 tab PO DAILY 11/27/20 [History] hydrALAZINE [Apresoline] 25 mg PO ASDIRECTED 11/27/20 [History] metroNIDAZOLE [Metrogel-Vaginal] 70 gm VG DAILY #1 gel.w.appl 02/24/21 [Rx] Past Medical History - Past Health History Medical/Surgical History: Denies Medical/Surgical History HEENT History: Reports: Other (See Below) Other HEENT History: oral surgery- 2 teeth extracted on left upper and lower Cardiovascular History: Reports: Hypertension, Other (See Below) Other Cardiovascular History: takes atenolol for history of tachycardia and migraines Respiratory History: Reports: None Gastrointestinal History: Reports: GERD Genitourinary History: Reports: Renal Calculus 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: Fibroids 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 History: exploratory laproscopy on 05-15-2016 Musculoskeletal History: Reports: Arthritis, Fracture Other Musculoskeletal History: Right radial fracture Neurological History: Reports: Migraines, Seizure Other Neuro History: has been on botox injection about 1 year now Psychiatric History: Reports: Addiction, Anxiety, Depression Other Psychiatric History: drug seeking behaviors Endocrine/Metabolic History: Reports: None Hematologic History: Reports: Other (See Below) Other Hematologic History: superficial blood clot 2013 Immunologic History: Reports: None Oncologic (Cancer) History: Reports: None - Infectious Disease History Infectious Disease History: Reports: Chicken Pox - Past Surgical History HEENT Surgical History: Reports: Oral Surgery, Other (See Below) Other HEENT Surgeries/Procedures: [place] teeth GI Surgical History: Reports: Other (See Below) Other GI Surgeries/Procedures: Exploratoy laproscopic Female Surgical History: Reports: D&C, Hysterectomy Other Female Surgeries/Procedures: Still has right ovary. Other Neurological Surgeries/Procedures: Had occipital block on Dec 13 Musculoskeletal Surgical History: Reports: Arthroscopic Knee, ORIF Other Musculoskeletal Surgeries/Procedures:: knee left scoped at 11 years of age Dermatological Surgical History: Reports: Plastic Surgical Reconstruction/Repair Social & Family History - Family History Family Medical History: No Pertinent Family History - Tobacco Use Tobacco Use Status *Q: Current Every Day Tobacco User Years of Tobacco use: 3 Packs/Tins Daily: 1 - Caffeine Use Caffeine Use: Reports: None - Recreational Drug Use Recreational Drug Use: No - Living Situation & Occupation Living situation: Reports: (), with Spouse, with Family (1 child) Occupation: Employed ([employer] @ [employer]) ED ROS GENERAL - Review of Systems Review Of Systems: See Below Constitutional: Reports: No Symptoms HEENT: Reports: No Symptoms Respiratory: Reports: No Symptoms Cardiovascular: Reports: No Symptoms Endocrine: Reports: No Symptoms GI/Abdominal: Reports: No Symptoms : Reports: No Symptoms Musculoskeletal: Reports: No Symptoms ED EXAM, BEHAVIORAL HEALTH - Physical Exam Exam: See Below Exam Limited By: No Limitations General Appearance: Alert, No Apparent Distress Ears: Normal External Exam Nose: Normal Inspection Head: Atraumatic, Normocephalic Neck: Normal Inspection Respiratory/Chest: No Respiratory Distress, Lungs Clear, Normal Breath Sounds Cardiovascular: Regular Rate, Rhythm, No Edema, No Murmur GI/Abdominal: Soft, Non-Tender, No Organomegaly, No Mass Extremities: Normal Inspection Neurological: Other (The patient is drowsy but will answer all of my questions) COURSE, BEHAVIORAL HEALTH COMP - Course Vital Signs: Last Vital Signs Temp 97.7 F 02/24/21 15:17 Pulse 123 H 02/24/21 15:17 Resp 14 02/24/21 15:17 BP 96/75 02/24/21 15:17 Pulse Ox 93 L 02/24/21 15:17 Orders, Labs, Meds: Active Orders 24 hr Category Date Time Status Cardiac Monitoring [RC] . DIRECTED Care 02/24/21 15:38 Active Peripheral IV Care [RC] . DIRECTED Care 02/24/21 15:39 Active ACETAMINOPHEN [CHEM] Stat Lab 02/24/21 16:38 Received COMPREHENSIVE METABOLIC PN,CMP [CHEM] Stat Lab 02/24/21 16:38 Received DRUG SCREEN, URINE [URCHEM] Stat Lab 02/24/21 15:38 Ordered ETHANOL BLOOD MEDICAL [CHEM] Stat Lab 02/24/21 16:38 Received HCG QUALITATIVE,SERUM [CHEM] Stat Lab 02/24/21 16:38 Received SALICYLATE [CHEM] Stat Lab 02/24/21 16:38 Received Sodium Chloride 0.9% [Saline Flush] Med 02/24/21 15:38 Active 10 ml FLUSH ASDIRECTED PRN Peripheral IV Insertion Adult [OM.PC] Stat Oth 02/24/21 15:38 Ordered Medication Orders Sodium Chloride (Sodium Chloride 0.9% 10 Ml Syringe) 10 ml FLUSH ASDIRECTED PRN PRN Reason: Keep Vein Open Laboratory Tests 02/24/21 Range/Units 16:38 WBC 9.73 (3.98-10.04) K/mm3 RBC 4.63 (3.98-5.22) M/mm3 Hgb 12.9 (11.2-15.7) gm/dl Hct 39.2 (34.1-44.9) % MCV 84.7 (79.4-94.8) fl MCH 27.9 (25.6-32.2) pg MCHC 32.9 (32.2-35.5) g/dl RDW Std Deviation 38.8 (36.4-46.3) fL Plt Count 298 D (182-369) K/mm3 MPV 8.5 L (9.4-12.3) fl Neut % (Auto) 55.5 (34.0-71.1) % Lymph % (Auto) 31.3 (19.3-51.7) % [place] % (Auto) 11.6 (4.7-12.5) % Eos % (Auto) 1.1 (0.7-5.8) Baso % (Auto) 0.2 (0.1-1.2) % Neut # (Auto) 5.39 (1.56-6.13) K/mm3 Lymph # (Auto) 3.05 (1.18-3.74) K/mm3 [place] # (Auto) 1.13 H (0.24-0.36) K/mm3 Eos # (Auto) 0.11 (0.04-0.36) K/mm3 Baso # (Auto) 0.02 (0.01-0.08) K/mm3 Medications Generic Name Dose Route Start Last Admin Trade Name Freq PRN Reason Stop Dose Admin Sodium Chloride 10 ml 02/24/21 15:38 Sodium Chloride 0.9% 10 Ml Syringe FLUSH ASDIRECTED PRN Keep Vein Open Re-Assessment/Re-Exam: I was going to put an IV in and do labs and a urine drug screen. She refused everything. I will try to observe her for awhile. I am concerned she took something but not 89 xanax. The patient did agree to some labs. Her CBC looks good. I do not have the rest back. She wants to leave. She is not suicidal and she did not take 89 xanax. She now tells me her abdomen hurts an she thinks she has a bacterial vaginosis again. I will give her some metrogel and a shot of toradol. Departure - Departure Time of Disposition: 17:10 Disposition: Home, Self-Care 01 Condition: Good Clinical Impression: Bacterial vaginosis, Stress at work Abdominal pain Qualifiers: Abdominal location: upper abdomen, unspecified Qualified Code(s): R10.10 - Upper abdominal pain, unspecified - Discharge Information *PRESCRIPTION DRUG MONITORING PROGRAM REVIEWED*: Not Applicable *COPY OF PRESCRIPTION DRUG MONITORING REPORT IN PATIENT CHANTAL: Not Applicable Prescriptions: metroNIDAZOLE [Metrogel-Vaginal] 70 gm VG DAILY #1 gel.w.appl Referrals: Rena Sheikh PA-C [Primary Care Provider] - 1 Week Forms: ED Department Discharge Additional Instructions: Take your medications as prescribed. Use the metrogel 2 times per day for 5 days. Follow up with your provider within a week. Please return if you are worse. Sepsis Event Note (ED) - Evaluation Sepsis Screening Result: No Definite Risk - Focused Exam Vital Signs: Vital Signs Temp Pulse Resp BP Pulse Ox 02/24/21 15:17 97.7 F 123 H 14 96/75 93 L - My Orders Last 24 Hours: My Active Orders 02/24/21 15:38 Cardiac Monitoring [RC] . DIRECTED DRUG SCREEN, URINE [URCHEM] Stat Sodium Chloride 0.9% [Saline Flush] 10 ml FLUSH ASDIRECTED PRN Peripheral IV Insertion Adult [OM.PC] Stat 02/24/21 15:39 Peripheral IV Care [RC] . DIRECTED 02/24/21 16:38 ACETAMINOPHEN [CHEM] Stat COMPREHENSIVE METABOLIC PN,CMP [CHEM] Stat ETHANOL BLOOD MEDICAL [CHEM] Stat HCG QUALITATIVE,SERUM [CHEM] Stat SALICYLATE [CHEM] Stat - Assessment/Plan Last 24 Hours: My Active Orders 02/24/21 15:38 Cardiac Monitoring [RC] . DIRECTED DRUG SCREEN, URINE [URCHEM] Stat Sodium Chloride 0.9% [Saline Flush] 10 ml FLUSH ASDIRECTED PRN Peripheral IV Insertion Adult [OM.PC] Stat 02/24/21 15:39 Peripheral IV Care [RC] . DIRECTED 02/24/21 16:38 ACETAMINOPHEN [CHEM] Stat COMPREHENSIVE METABOLIC PN,CMP [CHEM] Stat ETHANOL BLOOD MEDICAL [CHEM] Stat HCG QUALITATIVE,SERUM [CHEM] Stat SALICYLATE [CHEM] Stat
[2021-02-24] MEDS ORDERED: Ketorolac 60 MG/2 ML SDV IM ONE (17:05)
[2021-02-24 17:16] LABS: ACETAMINOPHEN 0 ug/mL (10-30)
[2021-02-24 17:23] VITALS: BP 115/80; PULSE 98
== END 2021-02-24 17:32 | disposition home or self-care (01) ==
LOC: JD.ED 15:14
DX: N76.0 Acute vaginitis (principal); F43.9 Reaction to severe stress, unspecified; I10 Essential (primary) hypertension; M19.90 Unspecified osteoarthritis, unspecified site; Z88.1 Allergy status to other antibiotic agents; Z88.5 Allergy status to narcotic agent; Z88.8 Allergy status to other drugs, medicaments and biological substances; Z79.899 Other long term (current) drug therapy; Z72.0 Tobacco use
CPT/HCPCS: 36415; 80053; 80143; 80179; 80307; 84703; 85025; 96372; 99284; J1885

== ENCOUNTER 2021-03-30 19:35 | Emergency (ER) | payer OTHER ==
[2021-03-30 20:27] VITALS: BP 123/83; PULSE 104
--- NOTE | 2021-03-30 20:39 | EDM.PDOC ---
ED HPI GENERAL MEDICAL PROBLEM - General Chief Complaint: Upper Extremity Injury/Pain Stated Complaint: WRIST INJURY Time Seen by Provider: 03/30/21 20:13 Source of Information: Reports: Patient History Limitations: Reports: No Limitations - History of Present Illness INITIAL COMMENTS - FREE TEXT/NARRATIVE: 31-year-old female presents the emergency department with complaints of right wrist pain. She states that this morning she was trying to get her cell phone that had fallen between her seat and her car seat when she somehow twisted her arm in between the seats. She states that she has been icing the extremity and took 1000 mg of Tylenol and 200 mg of ibuprofen this afternoon and this does not seem to help. Right Wrist Pain Score (Numeric/FACES): 10 - Related Data Allergies Allergy/AdvReac Type Severity Reaction Status Date / Time gentamicin [Gentamicin] Allergy Intermediate Redness Verified 02/25/21 15:39 morphine Allergy Intermediate Hives Verified 02/25/21 15:39 buspirone HCl [From BuSpar] AdvReac Intermediate Confusion Verified 02/25/21 15:39 prednisone AdvReac Intermediate Tachycardia Verified 02/25/21 15:39 sertraline AdvReac Intermediate Tachycardia Verified 02/25/21 15:39 Home Meds: Home Meds SUMAtriptan [Imitrex Pen Injector Kit] 6 mg SQ ASDIRECTED PRN 02/01/14 [History] Ketorolac [Toradol] 60 mg IM Q6H PRN 02/17/16 [History] Amitriptyline [Elavil] 150 mg PO BEDTIME 03/14/16 [History] Aspirin/Acetaminophen/Caffeine [Excedrin Migraine Caplet] 2 tab PO Q6H PRN 02/26/20 [History] Magnesium Oxide [Magnesium] 400 mg PO DAILY 08/22/20 [History] Ascorbic Acid [Vitamin C] 1,000 mg PO DAILY 09/27/20 [History] Ondansetron [Zofran ODT] 4 mg PO Q6H PRN 09/27/20 [History] atenoloL [Atenolol] 50 mg PO BID 10/04/20 [History] Venlafaxine [Effexor] 1 tab PO DAILY 11/27/20 [History] Vitamin B Complex 1 cap PO DAILY 03/30/21 [History] cloNIDine [Catapres] 0.1 mg PO QID PRN 03/30/21 [History] Past Medical History - Past Health History Medical/Surgical History: Denies Medical/Surgical History HEENT History: Reports: Other (See Below) Other HEENT History: oral surgery- 2 teeth extracted on left upper and lower Cardiovascular History: Reports: Hypertension, Other (See Below) Other Cardiovascular History: takes atenolol for history of tachycardia and migraines Respiratory History: Reports: None Gastrointestinal History: Reports: GERD Genitourinary History: Reports: Renal Calculus SAND OPERATOR History: Reports: Fibroids Other SAND OPERATOR History: exploratory laproscopy on 05-15-2016 Musculoskeletal History: Reports: Arthritis, Fracture Other Musculoskeletal History: Right radial fracture Neurological History: Reports: Migraines, Seizure Other Neuro History: has been on botox injection Psychiatric History: Reports: Addiction, Anxiety, Depression Other Psychiatric History: drug seeking behaviors Endocrine/Metabolic History: Reports: None Hematologic History: Reports: Other (See Below) Other Hematologic History: superficial blood clot 2013 Immunologic History: Reports: None Oncologic (Cancer) History: Reports: None - Infectious Disease History Infectious Disease History: Reports: Chicken Pox - Past Surgical History HEENT Surgical History: Reports: Oral Surgery, Other (See Below) Other HEENT Surgeries/Procedures: [place] teeth GI Surgical History: Reports: Other (See Below) Other GI Surgeries/Procedures: Exploratoy laproscopic Female Surgical History: Reports: Breast Implant, D&C, Hysterectomy Other Female Surgeries/Procedures: Still has right ovary. Other Neurological Surgeries/Procedures: Had occipital block on Dec 13 Musculoskeletal Surgical History: Reports: Arthroscopic Knee, ORIF Other Musculoskeletal Surgeries/Procedures:: knee left scoped at 11 years of age Dermatological Surgical History: Reports: Plastic Surgical Reconstruction/Repair Social & Family History - Family History Family Medical History: No Pertinent Family History - Tobacco Use Tobacco Use Status *Q: Current Every Day Tobacco User Years of Tobacco use: 17 Packs/Tins Daily: 0.3 - Caffeine Use Caffeine Use: Reports: Soda, Tea - Recreational Drug Use Other Recreational Drug Type: in past marijuana - Living Situation & Occupation Living situation: Reports: (), with Spouse, with Family (1 child) Occupation: Employed ([employer] @ [employer]) Review of Systems - Review of Systems Review Of Systems: Comprehensive ROS is negative, except as noted in HPI. ED EXAM, GENERAL - Physical Exam Exam: See Below Exam Limited By: No Limitations General Appearance: Alert, WD/WN, No Apparent Distress Ears: Normal External Exam, Hearing Grossly Normal Nose: Normal Inspection Throat/Mouth: Normal Inspection, Normal Lips, Normal Voice, No Airway Compromise Head: Atraumatic Neck: Normal Inspection, Supple Respiratory/Chest: No Respiratory Distress, No Accessory Muscle Use Cardiovascular: Normal Peripheral Pulses, Regular Rate, Rhythm Peripheral Pulses: 2+: Radial (L), Radial (R) GI/Abdominal: No Distention (Female) Exam: Deferred Rectal (Female) Exam: Deferred Back Exam: Normal Inspection Extremities: Normal Capillary Refill, Joint Swelling (Right wrist), Limited Range of Motion (Right wrist). No: Non-Tender (Tenderness noted to right distal radius) Neurological: Alert, Oriented, Normal Cognition Psychiatric: Normal Affect, Normal Mood Skin Exam: Warm, Dry, Intact, Normal Color, No Rash Lymphatic: No Adenopathy Course - Vital Signs Text/Narrative:: Upon assessment there is swelling noted to the right distal radius and her hand is edematous. She is unable to fully flex or extend the wrist and she is unable to make a full fist with her hand. Radial pulses palpable. Patient does have positive CMS to all her digits however they're cool to touch. I have ordered an x-ray of the right wrist. Last Recorded V/S: Last Vital Signs Temp 96.9 F 03/30/21 20:25 Pulse 104 H 03/30/21 20:25 Resp 20 03/30/21 20:25 BP 123/83 03/30/21 20:25 Pulse Ox 99 03/30/21 20:25 - Orders/Labs/Meds Orders: Active Orders 24 hr Category Date Time Status Wrist Comp Min 3V Rt [CR] Stat Exams 03/30/21 20:35 Ordered - Re-Assessments/Exams Free Text/Narrative Re-Assessment/Exam: 03/30/21 21:36 X-ray of right wrist were reviewed by myself and Dr. Monroe. No acute fracture is appreciated. Formal radiologist report is pending. Patient already has an arm splint. She can continue wearing this and she will be discharged to home with recommendations that she follow-up with Dr. Luciano in a week if not better. Departure - Departure Time of Disposition: 21:37 Disposition: Home, Self-Care 01 Condition: Good Clinical Impression: Strain of right wrist Qualifiers: Encounter type: initial encounter Qualified Code(s): S66.911A - Strain of unspecified muscle, fascia and tendon at wrist and hand level, right hand, initial encounter - Discharge Information Instructions: Pain Medicine Instructions, [id number] Referrals: Rena Sheikh PA-C [Primary Care Provider] - Forms: ED Department Discharge Additional Instructions: You were seen in the emergency department today with injury to your right forearm/wrist. X-rays were completed and there is no broken bones appreciated. May continue to wear the Velcro splint. Ice for 30 minutes at a time every 3 hours while awake. Keep the arm elevated as much as possible. May take ibuprofen 600 mg every 6 hours as needed for discomfort. Should you continue to have discomfort in about a week recommend that you follow-up with the orthopedic surgeon, Dr. Luciano. The number for his clinic is [phone]. Sepsis Event Note (ED) - Evaluation Sepsis Screening Result: No Definite Risk - Focused Exam Vital Signs: Vital Signs Temp Pulse Resp BP Pulse Ox 03/30/21 20:25 96.9 F 104 H 20 123/83 99 - My Orders Last 24 Hours: My Active Orders 03/30/21 20:35 Wrist Comp Min 3V Rt [CR] Stat - Assessment/Plan Last 24 Hours: My Active Orders 03/30/21 20:35 Wrist Comp Min 3V Rt [CR] Stat
--- NOTE | 2021-03-31 10:30 | CR ---
Right wrist: 3 views of the right wrist were obtained. Comparison: No prior wrist exam is available. Soft tissue swelling is identified. No discrete fracture, dislocation or other bony abnormality is appreciated. Impression: 1. Soft tissue swelling. 2. No acute osseous abnormality is seen. Note: If patient remains symptomatic, follow-up study in 10-14 days is then recommended. Diagnostic code #2
== END 2021-03-30 22:01 | disposition home or self-care (01) ==
LOC: JD.ED 19:35
DX: S66.911A Strain of unspecified muscle, fascia and tendon at wrist and hand level, right hand, initial encounter (principal); Z79.82 Long term (current) use of aspirin; Z72.0 Tobacco use; Z88.1 Allergy status to other antibiotic agents; Z88.6 Allergy status to analgesic agent; Z88.8 Allergy status to other drugs, medicaments and biological substances; X50.1XXA Overexertion from prolonged static or awkward postures, initial encounter
CPT/HCPCS: 73110-26-RT; 73110-RT; 99283; 99283-25